=== PATIENT | female | born 1940 | race Caucasian/White ===

== ENCOUNTER 2020-04-18 15:45 | Inpatient (IN) | payer MEDICARE, OTHER, SELFPAY ==
[2020-04-18] VITALS (14 sets, daily range): BP systolic 123–165; BP diastolic 74–117; PULSE 84–147; RESP 16–30; TEMP 37.1; O2SAT 91–97; BMI 27.0
--- NOTE | 2020-04-18 15:50 | XRR_ITS ---
PROCEDURE INFORMATION: Exam: XR Chest, 1 View Exam date and time: 04/18/2020 3:55 PM Age: 79 years old Clinical indication: Tachypnea; Patient HX: PT states no pain today, rapid heart rate TECHNIQUE: Imaging protocol: XR of the chest Views: 1 view. COMPARISON: No relevant prior studies available. FINDINGS: Lungs: Unremarkable. No consolidation. Pleural space: Unremarkable. No pleural effusion. No pneumothorax. Heart/Mediastinum: Unremarkable. No cardiomegaly. Bones/joints: Unremarkable. XR/XR chest 1V portable [id number] IMPRESSION: No acute findings.
--- NOTE | 2020-04-18 15:51 | ECG_ITS ---
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 Measurements Intervals [place] Rate: 119 P: ME: -1 QRS: -35 QRSD: 84 T: 256 QT: 268 QTc: 378 Interpretive Statements ATRIAL FIBRILLATION WITH RAPID VENTRICULAR RESPONSE LEFT AXIS DEVIATION [QRS AXIS < -30] NONSPECIFIC ST & T-WAVE ABNORMALITY No previous ECG available for comparison Electronically Signed On 04-18-2020 18:58:40 NEWBORN PHOTOGRAPHER by Steven Holder M.D. [email or web address]/[id number] f
--- NOTE | 2020-04-18 15:55 | W.ED.ARRPALP ---
HPI - Arrhythmia/Palpitations General: Chief Complaint: Arrhythmia/Palpitations Stated Complaint: AFIB WITH RVR Time Seen by Provider: 04/18/20 15:50 History of Present Illness: HPI narrative: This patient is a 79-year-old female who presents with rapid heart rate. She said her hearts been racing since about 4:00 this morning. She has a history of atrial fibrillation and had a in [place] by Dr. Boss at [facility]. That was done on Monday. She was started on metoprolol and digoxin. She said she has not been on medications for A. fib prior to that. She has had episodes of A. fib for quite some time but only recently apparently were these diagnosed. She gets short of breath and weak need when these episodes occur. She does not really have chest pain but has some tightness and heaviness in her chest. Today's episode was not any different. She was hoping it would go away on its own but it did not. She called EMS. They initially thought she was having SVT but then realized it was A. fib and gave her a dose of Cardizem, 10 mg IV push in route which did slow her down to around 100. On my evaluation however within a few minutes of her arrival her heart rate was back up in the 150s. MD complaint: rapid heart beat, skipped beats , irregular heart beat and atrial fibrillation Onset (ago): hour(s) (12) Duration: constant Severity: moderate Context: awoke with symptoms Arrhythmia history: atrial fibrillation Associated symptoms: Reports short of breath; Deny nausea or vomiting Treatments prior to arrival: beta-neda Review of Systems General: Reports: 10 or more systems reviewed and unremarkable except in HPI and below Const: Denies: fever(s), chills, fatigue or malaise Eyes: Denies: change in vision ENMT: Denies: odynophagia Card: Reports: chest pain and dyspnea on exertion; Denies: swelling of feet/ankles Resp: Denies: dyspnea, productive cough or non-productive cough GI: Denies: abdominal pain, nausea or vomiting : Denies: flank pain or difficulty voiding Musc: Denies: neck pain or back pain Skin/Breast: Denies: rash Neuro: Denies: headache(s), numbness in extremities or weakness in extremities Win/Lymph: Denies: easy bruising or easy bleeding PFSH ED PFSH: Medical History (Updated 04/18/20 @ 19:27 by Demetrio Godfrey MD) Diabetes mellitus History of cardioversion Hypertension Urinary incontinence Surgical History (Updated 04/18/20 @ 20:09 by Demetrio Godfrey MD) No pertinent past surgical history Family History (Updated 04/18/20 @ 20:10 by Demetrio Godfrey MD) Other Family history non-contributory Social History (Updated 04/18/20 @ 20:10 by Demetrio Godfrey MD) Smoking and tobacco status: never smoked Alcohol intake: never Substance/Drug Use: never Lives independently: Yes Housing: House Physical Exam Const: COMMON NORMALS: no acute distress, patient oriented x3, no limitations and alert GENERAL APPEARANCE: cooperative and comfortable HENMT: HEAD & SCALP: normal to inspection FACE & SINUS: normal facial exam Eye: GENERAL EYE: appearance normal, both eyes and all related structures Neck/C-Spine: COMMON NORMALS: supple, no meningeal signs and no JVD Chest: COMMONS NORMALS: normal inspection of the chest Resp: COMMON NORMALS: normal respiratory effort, No use of accessory muscles and clear to auscultation bilaterally AUSCULTATION: clear to auscultation bilaterally Cardio: COMMON NORMALS: no JVD and No murmurs present (Cardio) RATE: tachycardic RHYTHM: abnormal rhythm irregularly irregular GI: COMMON NORMALS: Normal to inspection, nondistended, normoactive bowel sounds present, Soft to palpation and non-tender INSPECTION: Yes normal to inspection AUSCULTATION: Yes normoactive bowel sounds PALPATION: Yes Soft to palpation Back/Pelvis: COMMON NORMALS: thoracic and lumbar spine normal to inspection Extremity: COMMON NORMALS: normal to inspection Neuro: COMMON NORMALS: patient oriented x3, moves all extremities, no focal motor deficits and no sensory deficits noted SENSORIUM/ORIENTATION: Yes alert MENINGEAL SIGNS: Yes no meningeal signs Psych: COMMON NORMALS: mental status grossly normal, cooperative and normal affect Skin: COMMON NORMALS: no rashes or lesions noted and turgor normal GENERAL SKIN EXAM: no rashes or lesions noted and turgor normal Course ED course: Patient will be admitted to the hospital as her heart rate is still not controlled. The Cardizem does definitely slow her down however at 15 mg/h it was noted that she was having pauses and at times her heart rate was dropping into the 40s. She said the same thing happened when they did the cardioversion on Monday. Because of this pauses I had the nurse decrease the Cardizem back down to 10. With that she seems to jump between about 80 and 110 on her heart rate. Her blood pressure continues to be stable. Her respirations are comfortable. She is in good spirits. Discussed with Dr. Godfrey and she will be admitted to the [facility]. Vital Signs: Vital signs: Vital Signs Pulse Rate 84 04/18/20 20:34 Respiratory Rate 30 H 04/18/20 20:34 Blood Pressure 152/74 04/18/20 20:34 Pulse Oximetry 95 04/18/20 20:34 MDM - Arrhythmia/Palpitations Lab Data: Labs: Lab Results 04/18/20 04/18/20 04/18/20 Range/Units 15:59 15:59 15:59 WBC 8.0 (4.0-10.0) 10^3/ uL RBC 4.38 (4.1-5.3) 10^6/u L Hgb 12.4 (11.5-15.3) g/dL Hct 39.6 (37.0-47.0) % MCV 90.4 (81-99) fL MCH 28.3 (28.0-34.0) pg MCHC 31.3 (30.0-36.0) g/dL RDW 15.9 H (12.1-15.1) % Plt Count 212 (130-400) 10^3/c mm MPV 11.8 H (7.4-10.4) fL Neut % (Auto) 69.8 % Lymph % (Auto) 19.4 % Beauregard % (Auto) 9.1 % Eos % (Auto) 0.6 % Baso % (Auto) 0.9 % Neut # (Auto) 5.61 (1.8-7.7) 10^3/u L Lymph # (Auto) 1.6 (0.8-4.8) 10^3/u L Beauregard # (Auto) 0.7 (0.2-0.9) 10^3/u L Eos # (Auto) 0.1 (0.0-0.8) 10^3/u L Baso # (Auto) 0.1 (0.0-0.1) 10^3/u L Nucleated RBC % (a uto) 0 % Nucleated RBCs # 0.0 /100WBC PT 15.40 H (12.1-14.9) SECO NDS INR 1.18 (0.8-1.2) D-Dimer 0.50 (0-0.59) ug/mIFE U Sodium 144 (136-145) mmol/L Potassium 4.5 (3.5-5.1) mmol/L Chloride 109 H (98-107) mmol/L Carbon Dioxide 23 (22-29) mmol/L Anion Gap 16.5 (5-19) BUN 14 (8-23) mg/dL Creatinine 0.8 (0.5-0.9) mg/dL GFR Calculation Not Reportable Glucose 153 H (65-115) mg/dL Estimat Average Gl ucose Hemoglobin A1c (4.0-6.0) % Calculated Osmolal ity 302 H (285-295) mOsm/k g Calcium 9.2 (8.5-10.5) mg/dL Magnesium 1.6 L (1.7-2.3) mg/dL Total Bilirubin 0.5 (0.15-1.2) mg/dL AST 28 (0-32) U/L ALT 27 (0-33) U/L Alkaline Phosphata se 57 (35-105) IU/L Troponin T Baselin e (0-10) ng/L Troponin T 120 Min [place] (0-10) ng/L Delta Troponin T (0-10) ABS# NT-Pro-B Natriuret Pep 5535 H (0-450) pg/mL Total Protein 6.2 L (6.6-8.7) g/dL Albumin 3.8 (3.5-5.2) g/dL Globulin 2.4 (1.3-4.6) g/dL TSH (0.27-4.20) uIU/ mL Digoxin (0.6-1.2) ng/mL 04/18/20 04/18/20 04/18/20 Range/Units 15:59 15:59 15:59 WBC (4.0-10.0) 10^3/ uL RBC (4.1-5.3) 10^6/u L Hgb (11.5-15.3) g/dL Hct (37.0-47.0) % MCV (81-99) fL MCH (28.0-34.0) pg MCHC (30.0-36.0) g/dL RDW (12.1-15.1) % Plt Count (130-400) 10^3/c mm MPV (7.4-10.4) fL Neut % (Auto) % Lymph % (Auto) % Bea[place]gard % (Auto) % Eos % (Auto) % Baso % (Auto) % Neut # (Auto) (1.8-7.7) 10^3/u L Lymph # (Auto) (0.8-4.8) 10^3/u L [place]gard # (Auto) (0.2-0.9) 10^3/u L Eos # (Auto) (0.0-0.8) 10^3/u L Baso # (Auto) (0.0-0.1) 10^3/u L Nucleated RBC % (a uto) % Nucleated RBCs # /100WBC PT (12.1-14.9) SECO NDS INR (0.8-1.2) D-Dimer (0-0.59) ug/mIFE U Sodium (136-145) mmol/L Potassium (3.5-5.1) mmol/L Chloride (98-107) mmol/L Carbon Dioxide (22-29) mmol/L Anion Gap (5-19) BUN (8-23) mg/dL Creatinine (0.5-0.9) mg/dL GFR Calculation Glucose (65-115) mg/dL Estimat Average Gl ucose 143 Hemoglobin A1c 6.6 H (4.0-6.0) % Calculated Osmolal ity (285-295) mOsm/k g Calcium (8.5-10.5) mg/dL Magnesium (1.7-2.3) mg/dL Total Bilirubin (0.15-1.2) mg/dL AST (0-32) U/L ALT (0-33) U/L Alkaline Phosphata se (35-105) IU/L Troponin T Baselin e 48 H (0-10) ng/L Troponin T 120 Min [place] (0-10) ng/L Delta Troponin T (0-10) ABS# NT-Pro-B Natriuret Pep (0-450) pg/mL Total Protein (6.6-8.7) g/dL Albumin (3.5-5.2) g/dL Globulin (1.3-4.6) g/dL TSH (0.27-4.20) uIU/ mL Digoxin 1.2 (0.6-1.2) ng/mL 04/18/20 04/18/20 Range/Units 18:05 18:05 WBC (4.0-10.0) 10^3/ uL RBC (4.1-5.3) 10^6/u L Hgb (11.5-15.3) g/dL Hct (37.0-47.0) % MCV (81-99) fL MCH (28.0-34.0) pg MCHC (30.0-36.0) g/dL RDW (12.1-15.1) % Plt Count (130-400) 10^3/c mm MPV (7.4-10.4) fL Neut % (Auto) % Lymph % (Auto) % Beauregard % (Auto) % Eos % (Auto) % Baso % (Auto) % Neut # (Auto) (1.8-7.7) 10^3/u L Lymph # (Auto) (0.8-4.8) 10^3/u L [place]gard # (Auto) (0.2-0.9) 10^3/u L Eos # (Auto) (0.0-0.8) 10^3/u L Baso # (Auto) (0.0-0.1) 10^3/u L Nucleated RBC % (a uto) % Nucleated RBCs # /100WBC PT (12.1-14.9) SECO NDS INR (0.8-1.2) D-Dimer (0-0.59) ug/mIFE U Sodium (136-145) mmol/L Potassium (3.5-5.1) mmol/L Chloride (98-107) mmol/L Carbon Dioxide (22-29) mmol/L Anion Gap (5-19) BUN (8-23) mg/dL Creatinine (0.5-0.9) mg/dL GFR Calculation Glucose (65-115) mg/dL Estimat Average Gl ucose Hemoglobin A1c (4.0-6.0) % Calculated Osmolal ity (285-295) mOsm/k g Calcium (8.5-10.5) mg/dL Magnesium 1.7 (1.7-2.3) mg/dL Total Bilirubin (0.15-1.2) mg/dL AST (0-32) U/L ALT (0-33) U/L Alkaline Phosphata se (35-105) IU/L Troponin T Baselin e (0-10) ng/L Troponin T 120 Min [place] 44.82 H (0-10) ng/L Delta Troponin T -3.18 L (0-10) ABS# NT-Pro-B Natriuret Pep (0-450) pg/mL Total Protein (6.6-8.7) g/dL Albumin (3.5-5.2) g/dL Globulin (1.3-4.6) g/dL TSH 1.65 (0.27-4.20) uIU/ mL Digoxin (0.6-1.2) ng/mL Discharge Plan Discharge Patient Disposition: Admitted As Inpatient Admit Provider: Demetrio Godfrey Clinical Impression: Atrial fibrillation Qualifiers: Atrial fibrillation type: paroxysmal Qualified Code(s): I48.0 - Paroxysmal atrial fibrillation Condition: Stable Coding Level of Care Code ED Alining Inspector for [facility] Fwd Exam Comprehensive
[2020-04-18 16:06] LABS: Basophils # 0.1 10^3/uL (0.0-0.1); Basophils % 0.9 %; Eosinophils # 0.1 10^3/uL (0.0-0.8); Eosinophils % 0.6 %; Hematocrit 39.6 % (37.0-47.0); Hemoglobin 12.4 g/dL (11.5-15.3); Lymphocytes # 1.6 10^3/uL (0.8-4.8); Lymphocytes % 19.4 %; Mean Corpuscular HGB Conc 31.3 g/dL (30.0-36.0); Mean Corpuscular Hemoglobin 28.3 pg (28.0-34.0); Mean Corpuscular Volume 90.4 fL (81-99); Mean Platelet Volume 11.8 fL (7.4-10.4); Monocytes # 0.7 10^3/uL (0.2-0.9); Monocytes % 9.1 %; Neutrophils # 5.61 10^3/uL (1.8-7.7); Neutrophils % 69.8 %; Nucleated Red Blood Cells % 0 %; Platelet Count 212 10^3/cmm (130-400); Red Blood Count 4.38 10^6/uL (4.1-5.3); Red Cell Distribution Width 15.9 % (12.1-15.1)
[2020-04-18 16:17] LABS: INR 1.18 (0.8-1.2)
[2020-04-18 16:31] LABS: Troponin(5th) Baseline 48 ng/L (0-10)
[2020-04-18 16:39] LABS: Alanine Aminotransferase 27 U/L (0-33); Albumin Level 3.8 g/dL (3.5-5.2); Alkaline Phosphatase 57 IU/L (35-105); Aspartate Amino Transferase 28 U/L (0-32); Blood Urea Nitrogen 14 mg/dL (8-23); Calcium 9.2 mg/dL (8.5-10.5); Carbon Dioxide 23 mmol/L (22-29); Chloride 109 mmol/L (98-107); Globulin 2.4 g/dL (1.3-4.6); Glucose 153 mg/dL (65-115); Magnesium 1.6 mg/dL (1.7-2.3); NT Pro B Type Natriuretic Pept 5535 pg/mL (0-450); Osmolality Calculated 302 mOsm/kg (285-295); Sodium 144 mmol/L (136-145); Total Bilirubin 0.5 mg/dL (0.15-1.2); Total Protein 6.2 g/dL (6.6-8.7)
[2020-04-18 16:41] LABS: Anion Gap 16.5 (5-19); Potassium 4.5 mmol/L (3.5-5.1)
--- NOTE | 2020-04-18 17:51 | ECG_ITS ---
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 Measurements Intervals [place] Rate: 111 P: FL: -1 QRS: -18 QRSD: 89 T: 267 QT: 300 QTc: 408 Interpretive Statements ATRIAL FIBRILLATION WITH RAPID VENTRICULAR RESPONSE ST DEVIATION AND MODERATE T-WAVE ABNORMALITY, CONSIDER LATERAL ISCHEMIA [-0.1+ mV T WAVE IN I/aVL/V5/V6] Compared to ECG 04/18/2020 16:28:02 Possible ischemia now present Left-axis deviation no longer present T-wave abnormality still present Electronically Signed On 04-18-2020 19:00:19 LINING STRAP CLOSER by Steven Holder M.D. [email or web address].[email or web address]/store/[id number]
--- NOTE | 2020-04-18 17:54 | PC.NURSE ---
Pt ambulated to BR with SBA. Pt ambulated without difficulty. Pt ambulated back to room without difficulty and placed back on monitor. Pt wishes to sit with her feet dangling. Daughter at bedside. Pt requesting water, per Dr Valencia, ok to have water. Pt given water. Pt denies other needs at this time.
[2020-04-18] MEDS: magnesium sulfate premix 2 GM/50 ML PIGGYBACK IV (18:33)
[2020-04-18 18:53] LABS: Troponin 5 2HR 44.82 ng/L (0-10)
[2020-04-18 18:54] LABS: Digoxin 1.2 ng/mL (0.6-1.2)
[2020-04-18 18:56] LABS: Troponin 5 2HR Delta -3.18 ABS# (0-10)
--- NOTE | 2020-04-18 18:59 | PC.NURSE ---
patient has bilateral lower extremity swelling upon arrival.
--- NOTE | 2020-04-18 19:21 | P.HP_ITS ---
Providers/Chief Complaint Primary Care Provider: Hunter Pavon Jr, MD Chief Complaint: AFIB WITH RVR History of Present Illness Sariah Yip is a 79 year old female who carries history of paroxysmal atrial fibrillation, chronic anticoagulation with Xarelto, recently had cardioversion on Monday at [facility], came in today for shortness of breath and back pain. Patient is stating that today she woke up around 4 AM with shortness of breath, she started experiencing back pain which she is describing in between shoulder blades, she went to the kitchen to check her blood pressure and pulse, her heart rate was in 140s, patient is stating that for last 3 to 4 days her heart rate was consistently in the 40s, she skipped her digoxin, today she resumed digoxin when she saw 140 heart rate. She also noticed some chest discomfort associated with high heart rate. She is denying nausea, vomiting, radiation of chest discomfort. She did not notice any fever, vomiting, diarrhea. She does not carry a previous history of cardiac disease, VA, CHF. Diagnosis in the ER revealed A. fib RVR in 140s, hypertensive, normal potassium, she was bolused with Cardizem and started on Cardizem drip, she maxed to 15ml/h which was titrated down because of sinus pauses noted on telemetry. Patient's vitals stayed stable, at the time of my evaluation heart rate was fluctuating between 80s to 120s, hypertensive, no active chest pain or back pain. Cardizem drip running at 10 mL/h High BNP with mild signs of fluid overload, D-dimer not significantly high, I have requested TSH, magnesium level Digoxin level 1.2 Review of Systems Const: Reports: malaise; Denies: fever(s), body aches or fatigue Eyes: Denies: change in vision ENMT: Denies: throat pain Card: Reports: chest pain, palpitations, irregular heart rhythm, swelling of feet/ankles, dyspnea on exertion and orthopnea Resp: Denies: dyspnea GI: Denies: abdominal pain, nausea, vomiting, diarrhea or constipation : Reports: urinary urgency Musc: Denies: neck pain Skin/Breast: Denies: rash Neuro: Denies: headache(s) Psych: Denies: anxiety Endo: Denies: polyuria Win/Lymph: Denies: easy bruising All/Imm: Denies: urticaria Medications/Allergies Home Medications Medication Instructions Recorded Confirmed Last Taken Type digoxin 250 mcg PO DAILY 04/18/20 04/18/20 04/18/20 History insulin glargine [Lantus U-100 18 unit SUBCUT BID 04/18/20 04/18/20 04/18/20 History Insulin] lisinopril 5 mg PO DAILY 04/18/20 04/18/20 04/18/20 History metformin 1,000 mg PO BID 04/18/20 04/18/20 04/18/20 History metoprolol succinate 100 mg PO DAILY 04/18/20 04/18/20 04/18/20 History oxybutynin chloride 5 mg PO DAILY PRN 04/18/20 04/18/20 04/18/20 History rivaroxaban [Xarelto] 20 mg PO DAILY 04/18/20 04/18/20 04/17/20 History simvastatin 20 mg PO DAILY 04/18/20 04/18/20 04/17/20 History Allergies Allergy/AdvReac Type Severity Reaction Status Date / Time propoxyphene [From Darvon] Allergy ADR-Itching Verified 04/18/20 16:06 PFSH Acute PFSH: Medical History (Updated 04/18/20 @ 19:27 by Demetrio Godfrey MD) Diabetes mellitus History of cardioversion Hypertension Urinary incontinence Surgical History (Updated 04/18/20 @ 20:09 by Demetrio Godfrey MD) No pertinent past surgical history Family History (Updated 04/18/20 @ 20:10 by Demetrio Godfrey MD) Other Family history non-contributory Social History (Updated 04/18/20 @ 20:10 by Demetrio Godfrey MD) Smoking and tobacco status: never smoked Alcohol intake: never Substance/Drug Use: never Lives independently: Yes Housing: House Vitals/I&O/Wt Last Vital Signs Pulse 107 H 04/18/20 18:36 Resp 22 H 04/18/20 18:36 BP 140/100 04/18/20 18:36 Pulse Ox 94 04/18/20 18:36 04/18/20 04/18/20 04/18/20 06:59 14:59 22:59 Intake Total 20.542 / 20.542 Balance 20.542 / 20.542 Weight last 48 hrs Weight 77.111 kg Physical Exam Narrative: EXAM NARRATIVE: elderly female sitting comfortably in her bed Normocephalic/atraumatic skull Appears stated age Clinically mild signs of fluid overload Variable S1-S2, EOMI, PERRLA Neurologically no focal deficit Appropriate mood and affect Bilateral breath sounds with mild rhonchi at the bases Abdomen soft nontender Lower extremity 1+ pitting edema Skin does not show any sign of ischemia or gangrene No active chest pain No active back pain Daughter at the bedside Data : 04/18/20 15:59 04/18/20 15:59 A&P Assessment and plan (1) Atrial fibrillation: Status: Acute Qualifiers: Atrial fibrillation type: paroxysmal Qualified Code(s): I48.0 - Paroxysmal atrial fibrillation (2) New onset of congestive heart failure: Status: Acute Additional A&P Information Paroxysmal atrial fibrillation with acute RVR Recently had cardioversion on Monday at [facility] She is anticoagulated with Xarelto She is taking metoprolol succinate, digoxin Digoxin level 1.2 Potassium level normal We will check TSH, magnesium level Currently on Cardizem drip running at 10 mL/h which has been titrated down from 15 mL/h due to sinus pauses noticed on telemetry, I would switch her metoprolol succinate to Metroprolol tartrate We discussed options of adding antiarrhythmic agent and optimizing her AV lucia blocking agents versus ablation Patient is adamant that she would like to discuss further options with her copyright expert at [place] but willing for second opinion in the morning, at this point she is not sure whether she would opt for antiarrhythmic agent New onset CHF This seems secondary to tachyarrhythmia Lasix na?ve I would only use 20 mg of Lasix for now Mild signs of fluid overload Echo in the morning Follow-up with TSH No signs of coronary ischemia or new murmur Type 2 diabetes: Moderate sliding scale, consistent carb diet, resume long- acting insulin Follow-up with hemoglobin A1c Full code DVT prophylaxis not indicated currently on Xarelto Consistent carb diet Attestations Medical Necessity Statement*: Anticipating stay in the hospital course more than 2 midnights currently need IV Cardizem for A. fib acute RVR Need optimization of AV lucia blocking agents Time Spent in Patient Care: (>than 50% of time spent in counselling and/or direct pt care on unit) . 50mins Coding Level of Care Code Acute Ehs Teacher for Chg Fwd Diagnoses Atrial fibrillation I48.0 Atrial fibrillation type: paroxysmal New onset of congestive heart failure I50.9
[2020-04-18 19:31] LABS: Glucose Point of Care 104 mg/dL (70-110)
[2020-04-18 19:56] LABS: Estmated Average Glucose 143; Hemoglobin A1C 6.6 % (4.0-6.0)
[2020-04-18 20:05] LABS: Magnesium 1.7 mg/dL (1.7-2.3); Thyroid Stimulating Hormone 1.65 uIU/mL (0.27-4.20)
--- NOTE | 2020-04-18 21:00 | PC.NURSE ---
pt placed on Zoll pads while on cardizem drip
[2020-04-18 21:51] LABS: Glucose Point of Care 183 mg/dL (70-110)
--- NOTE | 2020-04-18 22:43 | PC.NURSE ---
PT ARRIVED TO FLOOR VIA BED. PT WAS ABLE TO TRANSFER SBA TO BED. PT IS ON A CARDIZEM GTT AT 10MG/HR. HR WENT UP INTO THE 140'S WITH EXERTION AND CAME BACK DOWN TO 90'S AFTER SETTLING DOWN. PT IS ALERT AND ORIENTATED X3. PT ORIENTATED TO ROOM. CALL LIGHT WITHIN REACH. WILL CONTINUE TO MONITOR.
[2020-04-19] VITALS (23 sets, daily range): BP systolic 125–163; BP diastolic 73–109; PULSE 62–120; RESP 17–26; TEMP 36.4–37.1; O2SAT 92–97
--- NOTE | 2020-04-19 05:21 | ECG_ITS ---
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 Measurements Intervals [place] Rate: 99 P: ME: -1 QRS: -29 QRSD: 112 T: -60 QT: 353 QTc: 454 Interpretive Statements ATRIAL FIBRILLATION BORDERLINE LEFT AXIS DEVIATION [QRS AXIS < -20] MODERATE INTRAVENTRICULAR CONDUCTION DELAY [110+ ms QRS DURATION] MODERATE ST DEPRESSION [0.05+ mV ST DEPRESSION] INTERPRETATION BASED ON A DEFAULT AGE OF 40 YEARS Compared to ECG 04/18/2020 18:17:04 Intraventricular conduction delay now present ST (T wave) deviation now present T-wave abnormality no longer present Possible ischemia no longer present Electronically Signed On 04-19-2020 21:12:25 LABORER COOK [employer]SE by Steven Holder M.D. [id number] f
--- NOTE | 2020-04-19 05:48 | PC.NURSE ---
PT HAD CHEST PAIN/PRESSURE 3/10 CENTER MASS NON RADIATING. DR NOTIFIED. EKG ORDERED. EKG DONE AND CHEST PAIN RESOLVED WHILE DR WAS IN ROOM.
[2020-04-19 06:02] LABS: Anion Gap 13.9 (5-19); Blood Urea Nitrogen 11 mg/dL (8-23); Carbon Dioxide 26 mmol/L (22-29); Chloride 108 mmol/L (98-107); Glucose 110 mg/dL (65-115); Osmolality Calculated 298 mOsm/kg (285-295); Potassium 3.9 mmol/L (3.5-5.1); Sodium 144 mmol/L (136-145)
[2020-04-19 07:07] LABS: Glucose Point of Care 120 mg/dL (70-110)
[2020-04-19] MEDS: rivaroxaban 10 mg Tablet 20 MG PO (09:54)
[2020-04-19] MEDS: metoprolol tartrate 50 mg Tablet PO ×2 (09:55→17:56)
[2020-04-19] MEDS: atorvastatin 40 mg Tablet 20 MG PO (09:55)
[2020-04-19] MEDS: digoxin 250 mcg Tablet PO (09:55)
[2020-04-19] MEDS: FUROsemide 20 mg Tablet PO (09:55)
[2020-04-19] MEDS: lisinopril 5 mg Tablet PO (09:55)
[2020-04-19] MEDS: insulin glargine 100 units/1 mL 18 UNIT SUBCUT (09:56)
--- NOTE | 2020-04-19 10:22 | PC.NURSE ---
dr oneil texted at 0900 to verify medications. metoprolol succinate er 100mg and metoprolol tartrate 50mg. dr duvall called at 0950 for order clarifications, ordered to give metoprolol tartrate 50 mg.
--- NOTE | 2020-04-19 11:02 | PM.PN ---
Subjective Subjective: Interval history: Chart reviewed, patient remains on Cardizem drip due to continued A. fib with RVR, heart rate in the 110-120 range. Intermittently hypertensive. Cardizem currently at 10 mg/hr. She is resting quietly in bed, no complaints and she generally feels well as long as she is resting. She does feel SOB, and fatigued with any exertion and HR spikes. Medications: Reviewed: Yes Medication Review Details: Active Medications Generic Name Dose Route Start Last Admin Trade Name Freq PRN Reason Stop Dose Admin Atorvastatin Calci um 20 mg 04/19/20 09:00 04/19/20 09:55 Atorvastatin 40 Mg Tablet PO 20 mg DAILY MARVA Administration Dextrose 25 ml 04/18/20 21:22 Dextrose 50% Syr jaz 50 Ml IVP ONCE PRN hypoglycemia prot ocol Protocol Dextrose 50 ml 04/18/20 21:22 Dextrose 50% Syr jaz 50 Ml IVP PRN PRN hypoglycemia prot ocol Protocol Digoxin 250 mcg 04/19/20 09:00 04/19/20 09:55 Digoxin 250 Mcg Tablet PO 250 mcg DAILY MARVA Administration Furosemide 20 mg 04/19/20 09:00 04/19/20 09:55 Furosemide 20 Mg Tablet PO 20 mg DAILY MARVA Administration Glucagon 1 mg 04/18/20 21:22 Glucagon 1 Mg/Ml Inj 1 Ml IM ONCE PRN Adult Acute Hypog lycemia Prot. Protocol Diltiazem HCl 125 mg/ Sodium 125 mls @ 0 mls/h r 04/18/20 16:00 04/19/20 07:24 Chloride IV 10 mg/hr .Q0M MARVA 10 mls/hr Administration Protocol Per Protocol Dextrose 500 mls @ 100 mls /hr 04/18/20 21:22 D5w IV ONCE PRN Adult Acute Hypog lycemia Prot Protocol Insulin Aspart 0 unit 04/18/20 21:22 04/19/20 08:23 Insulin Aspart 1 00 Unit/1 Ml SUBCUT Not Given WM&BEDTIME MARVA Protocol Insulin Glargine 18 unit 04/19/20 09:00 04/19/20 09:56 Insulin Glargine 100 Units/1 Ml SUBCUT 18 unit DAILY MARVA Administration Lisinopril 5 mg 04/19/20 09:00 04/19/20 09:55 Lisinopril 5 Mg Tablet PO 5 mg DAILY MARVA Administration Metoprolol Tartrat e 50 mg 04/19/20 09:00 04/19/20 09:55 Metoprolol Tartr ate 50 Mg Tablet PO 50 mg BID MARVA Administration Oxybutynin Chlorid e 5 mg 04/18/20 21:22 Oxybutynin 5 Mg Tablet PO DAILY PRN MUSCLE SPASMS Rivaroxaban 20 mg 04/19/20 09:00 04/19/20 09:54 Rivaroxaban 10 M g Tablet PO 20 mg DAILY MARVA Administration propoxyphene [From Darvon] Allergy (Verified 04/18/20 16:06) ADR-Itching Vitals/I&O/Wt Last Vital Signs Temp 97.5 F L 04/19/20 08:00 Pulse 120 H 04/19/20 09:55 Resp 18 04/19/20 08:00 BP 149/109 04/19/20 08:00 Pulse Ox 97 04/19/20 08:00 04/18/20 04/19/20 04/19/20 22:59 06:59 14:59 Intake Total 20.542 / 20.542 104.458 / 125.000 118 / 118 Balance 20.542 / 20.542 104.458 / 125.000 118 / 118 Weight last 48 hrs Weight 77.111 kg Physical Exam Const: COMMON NORMALS: no acute distress, patient oriented x3 and alert GENERAL APPEARANCE: cooperative and comfortable ORIENTATION/CONSCIOUSNESS: Yes awake OTHER: -looks younger than stated age, very pleasant HENMT: COMMON NORMALS: normocephalic, atraumatic, hearing grossly normal bilaterally and moist oral mucous membranes HEAD & SCALP: normocephalic and atraumatic Eye: COMMON NORMALS: Equal, round and reactive pupils present, EOMs intact bilaterally and conjunctivae normal CONJUNCTIVA: Yes conjunctivae normal PUPIL: Yes Equal, round and reactive pupils present Neck/C-Spine: COMMON NORMALS: full ROM GENERAL: Yes normal visual inspection and Yes trachea midline Resp: COMMON NORMALS: normal respiratory effort, No retractions, No use of accessory muscles and clear to auscultation bilaterally EFFORT & INSPECTION: Yes able to speak in complete sentences, Yes symmetric chest movement and Yes tachypneic AUSCULTATION: clear to auscultation bilaterally OTHER: -on RA Cardio: COMMON NORMALS: S1 normal heart sound present, S2 normal heart sound present and No murmurs present (Cardio) RATE: tachycardic RHYTHM: abnormal rhythm irregularly irregular HEART SOUNDS: S1 normal heart sound present and S2 normal heart sound present GI: COMMON NORMALS: Normal to inspection, nondistended, normoactive bowel sounds present, Soft to palpation and non-tender PALPATION: Yes Soft to palpation Extremity: COMMON NORMALS: normal to inspection, full ROM and no clubbing, cyanosis or edema; negative for no pedal edema Neuro: COMMON NORMALS: patient oriented x3, moves all extremities, no focal motor deficits and no sensory deficits noted SENSORIUM/ORIENTATION: Yes alert Psych: COMMON NORMALS: mental status grossly normal, Normal thought process present, cooperative, normal affect and speech normal SPEECH: Yes normal speech THOUGHT PROCESS: Normal thought process present Skin: COMMON NORMALS: no rashes or lesions noted, no jaundice, no petechiae and no mottling GENERAL SKIN EXAM: no rashes or lesions noted Data : 04/18/20 15:59 04/19/20 04:57 A&P Assessment and plan (1) Atrial fibrillation: -Has a known history of paroxysmal atrial fibrillation with recent cardioversion done on Monday (04/13) at [facility] by Dr. Post (her hearings reporter) -Symptomatic as evidenced by shortness of breath, chest discomfort -Remains on Cardizem drip, wean off as tolerated -Continue digoxin, beta-neda, anticoagulation with Xarelto -Echo ordered -Telemetry monitoring -Noted potassium of 3.9, received Mg in the ER, will recheck level in a.m., TSH within normal limits -Intermittent hypertension, tachycardia; continue to monitor vital signs -may need formal cardiology evaluation if difficulty with consistent HR control Status: Acute Qualifiers: Atrial fibrillation type: paroxysmal Qualified Code(s): I48.0 - Paroxysmal atrial fibrillation (2) New onset of congestive heart failure: -Echo pending, none on record -on oral lasix -[id number] Status: Acute (3) Diabetes mellitus: -A1c at goal-6.6 -Acucheks, ISS, Lantus, hypoglycemia precautions -cardiac consistent carb diet as tolerated -hold metformin Status: Chronic Qualifiers: Chronic kidney disease stage: stage 2 (mild) Diabetes mellitus complication detail: with chronic kidney disease Diabetes mellitus complication status: with kidney complications Diabetes mellitus halfway insulin use: with long term care social worker use Diabetes mellitus type: type 2 Qualified Code(s): E11.22 - Type 2 diabetes mellitus with diabetic chronic kidney disease; N18.2 - Chronic kidney disease, stage 2 (mild); Z79.4 - nursing home (current) use of insulin (4) Hypertension: -noted hypertension, increase dose of ACEi -continue BB Status: Chronic Qualifiers: Hypertension type: essential hypertension Qualified Code(s): I10 - Essential (primary) hypertension Additional A&P Information -hx of urinary incontinence: on oxybutynin -CKD stage 2; baseline Cr wnl -DVT ppx not needed as on Xarelto -Dispo: home -Code status: FULL code Attestations Medical Necessity Statement*: Patient requires hospitalization for continued management of atrial fibrillation with RVR, remains on Cardizem drip, needs continued hemodynamic and telemetry monitoring. Time Spent in Patient Care: Greater than 35 minutes (>than 50% of time spent in counselling and/or direct pt care on unit). Coding Level of Care Code Acute Trauma Coordinator for g Fwd Exam Comprehensive Diagnoses Atrial fibrillation I48.0 Atrial fibrillation type: paroxysmal New onset of congestive heart failure I50.9 Diabetes mellitus E11.22; N18.2; Z79.4 Chronic kidney disease stage: stage 2 (mild) Diabetes mellitus complication detail: with chronic kidney disease Diabetes mellitus complication status: with kidney complications Diabetes mellitus long term care social worker insulin use: with long term care social worker use Diabetes mellitus type: type 2 Hypertension I10 Hypertension type: essential hypertension
[2020-04-19 11:47] LABS: Glucose Point of Care 182 mg/dL (70-110)
--- NOTE | 2020-04-19 12:12 | PC.CHAP ---
Pastoral Care Encounter/Spiritual Assessment Type of Contact [] Declined vigoureux printer visit [] Patient/Family/Request visit [] Outpatient visit [] Follow-up visit [] Physician referral [] Code/Alert [] Routine visit [] Staff referral [] Actively dying [] Patient sleeping [] Family support [] [] Out of room [] Palliative care [] [X] Receiving care in room [] Pre-surgical visit [] Trauma [] Long length of stay [] ICU visit [] Other: Relational/Emotional Strength [] Patient feels connected with others/family/visitors/staff [] Distress [] Loneliness/isolation [] Abandonment Spirituality of Patient [] Person of Nichelle [] Attends Caodaism of their Nichelle [] Believes in Prayer [] Reads Bible or Latter-Day materials [] There are Spiritual issues to be addressed Bmet Interventions [] Prayer [] Active listening [] Non-anxious presence [] Spiritual/emotional support [] Crisis/trauma care [] Spiritual counseling [] Bereavement support [] Provided bereavement packet [] Provided Bible/devotional materials [] Provided toy/stuffed animal, coloring book to patient or family member [] Provided Communion [] Anointing/[place] [] Salvation [] Completed spiritual assessment [] Other: Impact on Illness or Injury [] Angry [] Fearful [] Anxious [] Often cries [] Exhaustion [] Unable to work [] Unable to attend protestant [] Unable to walk/stand [] Unable to read [] Unable to drive [] Unable to eat/drink [] Unable to sleep [] Unable to be with family [] Patient intubated [] Other: Summary Time spent with patient
[2020-04-19 17:07] LABS: Glucose Point of Care 176 mg/dL (70-110)
[2020-04-19] MEDS: lisinopril 10 mg Tablet PO (17:56)
[2020-04-19 20:15] LABS: Glucose Point of Care 251 mg/dL (70-110)
--- NOTE | 2020-04-19 21:03 | PC.NURSE ---
2030 HR 60s-80 at rest remains A-fibb Cardizem drip decreased to 10mg/hr
--- NOTE | 2020-04-19 21:22 | USCV_ITS ---
Sariah Yip Age: 79 Gender: F : 1940 Exam Date: 04/19/2020 13:10 Ordering Phys: Demetrio Godfrey MD Technologist: Claudia Chaudhry Exam Location: [facility] [place] Indication: New CHF BP: 149 / 109 HR: 106 Rhythm: Sinus Technical Quality: Technically difficult study MEASUREMENTS (Male / Female) Normal Values 2D ECHO LV Diastolic Diameter PLAX 3.3 cm 4.2 - 5.9 / 3.9 - 5.3 cm LV Systolic Diameter PLAX 3.1 cm LV Chamber Size 4.1 cm IVS Diastolic Thickness 1.3 cm 0.6 - 1.0 / 0.6 - 0.9 cm IVS Systolic Thickness 1.7 cm LVPW Diastolic Thickness 1.2 cm 0.6 - 1.0 / 0.6 - 0.9 cm LVPW Systolic Thickness 1.4 cm RV Chamber Size 2.5 cm LVOT Diameter 2.0 cm LV Ejection Fraction 2D Teich 18.6 % LV Ejection Fraction MOD 2C 52.2 % LV Ejection Fraction 2C AL 52.9 % LA Diameter 3.1 cm LA Width 3.6 cm LA Height 4.6 cm RA Width 2.9 cm RA Height 5.3 cm Aorta at Sinotubular Diameter 2.8 cm M-MODE LV Diastolic Diameter MM 3.8 cm 4.2 - 5.9 / 3.9 - 5.3 cm LV Systolic Diameter MM 2.9 cm LV Ejection Fraction MM Teich 47.2 % IVS Diastolic Thickness MM 1.5 cm 0.6 - 1.0 / 0.6 - 0.9 cm IVS Systolic Thickness MM 1.6 cm LVPW Diastolic Thickness MM 1.4 cm 0.6 - 1.0 / 0.6 - 0.9 cm LVPW Systolic Thickness MM 1.5 cm RV Diastolic Diameter MM 1.7 cm Aortic Annulus Diameter 3.4 cm LA Ao Ratio MM 1.1 MV E Point Septal Separation 0.7 cm DOPPLER AV Peak Velocity 140.0 cm/s LVOT Peak Velocity 97.0 cm/s AV Area Cont Eq vti 2.3 cm squared AV Area Cont Eq pk 2.3 cm squared MV Area PHT 5.4 cm squared MV E' Velocity 113.7 cm/s TR Peak Velocity 397.0 cm/s TR Peak Gradient 63.0 mmHg TR Mean Velocity 231.2 cm/s TR Mean Gradient 22.2 mmHg TR Velocity Time Integral 70.3 cm TV Peak E Velocity 46.0 cm/s Right Atrial Pressure 8.0 mmHg Pulmonary Artery Systolic Pressu 71.0 mmHg PV Peak Velocity 47.0 cm/s RV Acceleration Time 0.1 s RV Ejection Time 0.3 s RV AcT/ET 0.3 FINDINGS Left Ventricle Normal left ventricular size and systolic function, EF 55 %. Segmental wall motion analysis difficult because atrial fibrillation. No gross abnormalities were noted. Right Ventricle Normal LV size and ejection fraction Right Atrium Moderately increased right atrial size. Left Atrium Mildly increased left atrial size. Mitral Valve Thickened mitral valve. Mild mitral valve regurgitation. Aortic Valve Thickened aortic valve. Tricuspid Valve Ihfk-eh-vwzknsah tricuspid valve regurgitation. Moderate pulmonary hypertension with estimated pulmonary artery peak systolic pressure of 71 mmHg. Pulmonic Valve Trace pulmonary valve regurgitation. Pericardium Normal pericardium without effusion. Aorta Normal ascending aorta dimension. CONCLUSIONS Normal left ventricular size and systolic function, EF 55 %. Segmental wall motion analysis difficult because atrial fibrillation. [id number] tricuspid valve regurgitation. Moderate pulmonary hypertension with estimated pulmonary artery peak systolic pressure of 71 mmHg. No gross abnormalities were noted. Trace pulmonary valve regurgitation. Thickened aortic valve. Thickened mitral valve. Mild mitral valve regurgitation. Biatrial enlargement, right worse than the left There is no pericardial effusion. There are no intracardiac masses. No previous study is available for comparison. Dr Steven Holder MD FAC (Electronically Signed) Final Date: 19 April 2020 20:51 S
[2020-04-20] VITALS (8 sets, daily range): BP systolic 127–168; BP diastolic 74–114; PULSE 84–111; RESP 18–26; TEMP 36.4–37.1; O2SAT 93–96
[2020-04-20 07:05] LABS: Glucose Point of Care 158 mg/dL (70-110)
[2020-04-20] MEDS: insulin glargine 100 units/1 mL 18 UNIT SUBCUT (09:48)
[2020-04-20] MEDS: metoprolol tartrate 50 mg Tablet PO ×2 (09:48→17:20)
[2020-04-20] MEDS: lisinopril 10 mg Tablet PO ×2 (09:48→17:20)
[2020-04-20] MEDS: atorvastatin 40 mg Tablet 20 MG PO (09:48)
[2020-04-20] MEDS: FUROsemide 20 mg Tablet PO (09:48)
[2020-04-20] MEDS: rivaroxaban 10 mg Tablet 20 MG PO (09:48)
[2020-04-20] MEDS: digoxin 250 mcg Tablet PO (09:48)
[2020-04-20 09:58] LABS: Anion Gap 14.7 (5-19); Blood Urea Nitrogen 12 mg/dL (8-23); Calcium 8.7 mg/dL (8.5-10.5); Carbon Dioxide 24 mmol/L (22-29); Chloride 104 mmol/L (98-107); Glucose 228 mg/dL (65-115); Magnesium 1.7 mg/dL (1.7-2.3); Osmolality Calculated 295 mOsm/kg (285-295); Potassium 3.7 mmol/L (3.5-5.1); Sodium 139 mmol/L (136-145)
[2020-04-20 11:23] LABS: Glucose Point of Care 237 mg/dL (70-110)
[2020-04-20 16:04] LABS: Glucose Point of Care 228 mg/dL (70-110)
--- NOTE | 2020-04-20 17:02 | PM.CONSULT ---
Providers/Reason For Consult Consulting Physican/Specialty*: Dr. Felix, cardiology Reason for Consult*: Atrial fibrillation with rapid ventricular response Attending Physician: Omar Desir Primary Care Provider: Hunter Pavon Jr, MD History of Present Illness History of Present Illness Sariah Yip is a 79 year old female with past medical history of hypertension, diabetes mellitus, dyslipidemia, paroxysmal atrial fibrillation on Xarelto, metoprolol and digoxin. She recently underwent outpatient cardioversion x1 by Dr. Post at [facility] in [place]. She remained in sinus bradycardia with heart rate in 40s and hence held her digoxin from Monday to Monday. Monday night she was feeling okay when she went to bed but on Monday morning when she woke up she did not feel well. She checked her pulse and heart rate was in 140s and hence she came to the hospital for further management. She really wants to get her care with Dr. Post at [facility] but eventually she has agreed to get started on medications here. Her EKG on admission showed A. fib with RVR and she was started on Cardizem drip. Hemoglobin A1c of 6.6, baseline troponin T of 48, troponin T at 2 hours 45. NT proBNP 5535 and TSH of 1.65. Dig level of 1.2. She has remained on Cardizem drip with heart rate running 90s to 130s with spikes with activities. She continues to have shortness of breath intermittently. At the time of evaluation she feels short of breath but denies having any chest pain or shortness of breath. Her daughter was at bedside at the time of evaluation. Review of Systems General: Reports: 10 or more systems reviewed and unremarkable except in HPI and below Const: Denies: fever(s) or chills Eyes: Denies: blurry vision ENMT: Denies: bleeding gums Card: Reports: palpitations, irregular heart rhythm and dyspnea on exertion; Denies: edema Resp: Reports: dyspnea; Denies: productive cough or non-productive cough GI: Reports: abdominal pain; Denies: nausea, vomiting or hematochezia : Denies: hematuria Musc: Denies: extremity swelling Skin/Breast: Reports: rash (Upper chest due to patch) Neuro: Denies: headache(s) Psych: Reports: anxiety Win/Lymph: Denies: petechiae or purpura All/Imm: Denies: urticaria or throat swelling Meds/Allergies Home Medications and Allergies Home Medications Medication Instructions Recorded Confirmed Last Taken Type digoxin 250 mcg PO DAILY 04/18/20 04/18/20 04/18/20 History insulin glargine [Lantus U-100 18 unit SUBCUT BID 04/18/20 04/18/20 04/18/20 History Insulin] lisinopril 5 mg PO DAILY 04/18/20 04/18/20 04/18/20 History metformin 1,000 mg PO BID 04/18/20 04/18/20 04/18/20 History metoprolol succinate 100 mg PO DAILY 04/18/20 04/18/20 04/18/20 History oxybutynin chloride 5 mg PO DAILY PRN 04/18/20 04/18/20 04/18/20 History rivaroxaban [Xarelto] 20 mg PO DAILY 04/18/20 04/18/20 04/17/20 History simvastatin 20 mg PO DAILY 04/18/20 04/18/20 04/17/20 History Allergies Allergy/AdvReac Type Severity Reaction Status Date / Time propoxyphene [From [id number]] Allergy ADR-Itching Verified 04/18/20 16:06 Current Medications Current Medications Generic Name Dose Route Start Last Admin Trade Name Freq PRN Reason Stop Dose Admin Atorvastatin Calcium 20 mg 04/19/20 09:00 04/20/20 09:48 Atorvastatin 40 Mg Tablet PO 20 mg DAILY MARVA Administration Digoxin 250 mcg 04/19/20 09:00 04/20/20 09:48 Digoxin 250 Mcg Tablet PO 250 mcg DAILY MARVA Administration Furosemide 20 mg 04/19/20 09:00 04/20/20 09:48 Furosemide 20 Mg Tablet PO 20 mg DAILY MARVA Administration Diltiazem HCl 125 mg/ Sodium 125 mls @ 0 mls/hr 04/18/20 16:00 04/20/20 14:29 Chloride IV Infused .Q0M MARVA Titration Protocol Per Protocol Insulin Aspart 0 unit 04/18/20 21:22 04/20/20 12:45 Insulin Aspart 100 Unit/1 Ml SUBCUT 8 unit WM&BEDTIME MARVA Administration Protocol Insulin Glargine 18 unit 04/19/20 09:00 04/20/20 09:48 Insulin Glargine 100 Units/1 Ml SUBCUT 18 unit DAILY MARVA Administration Lisinopril 10 mg 04/19/20 18:00 04/20/20 09:48 Lisinopril 10 Mg Tablet PO 10 mg BID MARVA Administration Metoprolol Tartrate 50 mg 04/19/20 09:00 04/20/20 09:48 Metoprolol Tartrate 50 Mg Tablet PO 50 mg BID MARVA Administration Rivaroxaban 20 mg 04/19/20 09:00 04/20/20 09:48 Rivaroxaban 10 Mg Tablet PO 20 mg DAILY MARVA Administration PFSH Acute PFSH: Medical History Diabetes mellitus History of cardioversion Hypertension Urinary incontinence Surgical History No pertinent past surgical history Family History Other Family history non-contributory Social History Smoking and tobacco status: never smoked Alcohol intake: never Substance/Drug Use: never Lives independently: Yes Housing: House Vitals/I&O/Wt Last Vital Signs Temp 98.2 F 04/20/20 15:08 Pulse 87 04/20/20 15:08 Resp 25 H 04/20/20 15:08 BP 136/98 04/20/20 15:08 Pulse Ox 94 04/20/20 15:08 04/20/20 04/20/20 04/20/20 06:59 14:59 22:59 Intake Total 120 / 723 605 / 605 Balance 120 / 723 605 / 605 Physical Exam Narrative: EXAM NARRATIVE: GENERAL: Averagely built and averagely nourished in no acute distress HEENT: Pupils equal round reactive to light. No pallor or icterus. NECK: central trachea, no JVD,. No carotid bruit. CARDIOVASCULAR SYSTEM: S1-S2 irregular. Tachycardia present. No murmur rubs or gallops. RESPIRATORY SYSTEM: Chest clear to auscultation. No wheezes rhonchi or rubs heard. No use of accessory muscles. ABDOMEN: Soft, nontender and nondistended. Normal bowel sounds present. EXTREMITIES: No cyanosis or clubbing. No edema. No signs of chronic venous insufficiency. COMPUTER SYSTEMS SUPPORT SPECIALIST: Patient is alert oriented ?3. No focal neurological deficits. SKIN: Normal turgor and temperature. No breakdown, or nail changes noted. PSYCH: Normal insight and judgment. Data Other Data: Attestation for Other Data: I personally reviewed and interpreted the following: Other data: EKG showed A. fib with RVR. Left axis deviation and nonspecific ST-T wave abnormality. Repeat EKG with atrial fibrillation. Borderline next left axis deviation. Moderate intraventricular conduction delay. Nonspecific ST depression. Chest x-ray with no acute abnormality. TTE (04/19/20) CONCLUSIONS Normal left ventricular size and systolic function, EF 55 %. Segmental wall motion analysis difficult because atrial fibrillation. Fkzc-al-fvubbwvy tricuspid valve regurgitation. Moderate pulmonary hypertension with estimated pulmonary artery peak systolic pressure of 71 mmHg. No gross abnormalities were noted. Trace pulmonary valve regurgitation. Thickened aortic valve. Thickened mitral valve. Mild mitral valve regurgitation. Biatrial enlargement, right worse than the left There is no pericardial effusion. There are no intracardiac masses. No previous study is available for comparison. A&P Assessment and plan (1) Atrial fibrillation: Paroxysmal atrial fibrillation with rapid medical response [id number]= 5/9 , one for hypertension, two for age, one for female sex and one for congestive heart failure. -Follow-up on records from Dr. Post's office. -After much discussion with the patient and her daughter who is currently visiting from [place], decision was made to start her on amiodarone with plan for cardioversion on Monday if she does not convert on her own. -Continue Xarelto, metoprolol and Cardizem drip as needed. -May stop Cardizem drip if heart rate drops to less than 90s. Concern for early tachybradycardia syndrome: She may eventually need either permanent pacemaker placement or AV lucia ablation with permanent pacemaker placement. Status: Acute Qualifiers: Atrial fibrillation type: paroxysmal Qualified Code(s): I48.0 - Paroxysmal atrial fibrillation (2) New onset of congestive heart failure: Likely in setting of A. fib with RVR. -Continue low-dose Lasix Status: Acute (3) Hypertension: Dose of lisinopril was increased. -Continue closely monitor blood pressure and heart rate and further changes based on that. Status: Chronic Qualifiers: Hypertension type: essential hypertension Qualified Code(s): I10 - Essential (primary) hypertension (4) Diabetes mellitus: Status: Chronic Qualifiers: Diabetes mellitus type: type 2 Diabetes mellitus terminal manager insulin use: with usp use Diabetes mellitus complication status: with kidney complications Diabetes mellitus complication detail: with chronic kidney disease Chronic kidney disease stage: stage 2 (mild) Qualified Code(s): E11.22 - Type 2 diabetes mellitus with diabetic chronic kidney disease; N18.2 - Chronic kidney disease, stage 2 (mild); Z79.4 - termite control technician (current) use of insulin Additional A&P Information Elevated troponin in setting of atrial fibrillation with rapid response diffuse nonspecific abdominal pain : I will get a urinalysis History of urinary incontinence Thank you for let me to participate in patient's care. Please feel free to call with questions or concerns. Consult Attestations Medical Necessity Statement: Needs hospital stay for atrial fibrillation with rapid ventricular response Coding Level of Care Code New Pt Acute Marine Equipment Design Engineer for g Fwd Patient Type New History Comprehensive Exam Comprehensive Medical Decision Making High Complexity Diagnoses Atrial fibrillation I48.0 Atrial fibrillation type: paroxysmal New onset of congestive heart failure I50.9 Hypertension I10 Hypertension type: essential hypertension Diabetes mellitus E11.22; N18.2; Z79.4 Diabetes mellitus type: type 2 Diabetes mellitus usp insulin use: with terminal manager use Diabetes mellitus complication status: with kidney complications Diabetes mellitus complication detail: with chronic kidney disease Chronic kidney disease stage: stage 2 (mild) Time Spent (min) 45
[2020-04-20] MEDS: amiodarone 200 mg Tablet 400 MG PO ×2 (17:20→20:43)
--- NOTE | 2020-04-20 18:17 | PC.NURSE ---
patient had an uneventful shift. cardizem drip at 10 and down to 5 at the end of the shift. dr mcclure verbal order to keep cardizem going per protocol.
--- NOTE | 2020-04-20 19:14 | PC.NURSE ---
Rounding: patient resting in bed. patient alert and oriented. denies any needs at this time.
--- NOTE | 2020-04-20 19:30 | P.PN_ITS ---
Subjective Subjective: Interval history: She is doing all right. Daughter is visiting her at bedside. She just had a long discussion with cardiology with regards to options of treatment. Denies any additional questions apart from what to do if when she goes home gets worse again. Discussed with her that given difficulty controlling her atrial fibrillation, and symptoms associated, in case she was again having A. fib with RVR at home, advised to seek medical attention. Denies chest pain. Has been feeling fatigued, especially with exertion. Vitals/I&O/Wt Last Vital Signs Temp 98.2 F 04/20/20 15:08 Pulse 87 04/20/20 15:08 Resp 25 H 04/20/20 15:08 BP 136/98 04/20/20 15:08 Pulse Ox 94 04/20/20 15:08 04/20/20 04/20/20 04/20/20 06:59 14:59 22:59 Intake Total 120 / 723 605 / 605 Balance 120 / 723 605 / 605 Physical Exam Const: COMMON NORMALS: no acute distress and patient oriented x3 OTHER: Sitting up in bed, having dinner. Denies any chest pain. No discomfort. HENMT: COMMON NORMALS: oropharynx normal Neck/C-Spine: COMMON NORMALS: no JVD Resp: COMMON NORMALS: normal respiratory effort and clear to auscultation bilaterally AUSCULTATION: clear to auscultation bilaterally Cardio: COMMON NORMALS: no JVD, S1 normal heart sound present, S2 normal heart sound present and No murmurs present (Cardio) RATE: tachycardic RHYTHM: abnormal rhythm HEART SOUNDS: S1 normal heart sound present and S2 normal heart sound present GI: COMMON NORMALS: Normal to inspection, nondistended, normoactive bowel sounds present, Soft to palpation and non-tender PALPATION: Yes Soft to palpation Extremity: COMMON NORMALS: no joint enlargement and no pedal edema Neuro: COMMON NORMALS: patient oriented x3 and moves all extremities Skin: COMMON NORMALS: no rashes or lesions noted GENERAL SKIN EXAM: no rashes or lesions noted Data : 04/18/20 15:59 04/20/20 09:33 A&P Assessment and plan (1) Atrial fibrillation: A. fib with RVR, paroxysmal, given persistent symptomatic A. fib currently, with recent cardioversion 04/13/2020 at [facility] in [place] by Dr. Post (her eyeglass inspector), requested cardiology consultation, appreciate assessment and recommendations. Starting amiodarone. Continue metoprolol. Cardizem drip as needed. Continue Xarelto. -Symptomatic as evidenced by shortness of breath, chest discomfort -Remains on Cardizem drip, wean off as tolerated -Telemetry monitoring TSH within normal limits Status: Acute Qualifiers: Atrial fibrillation type: paroxysmal Qualified Code(s): I48.0 - Paroxysmal atrial fibrillation (2) New onset of congestive heart failure: Continue Lasix, optimize control of A. fib Status: Acute (3) Diabetes mellitus: -A1c at goal-6.6 -Acucheks, ISS, Lantus, hypoglycemia precautions -cardiac consistent carb diet as tolerated -hold metformin Status: Chronic Qualifiers: Diabetes mellitus type: type 2 Diabetes mellitus technician terminal and repeater insulin use: with technician terminal and repeater use Diabetes mellitus complication status: with kidney complications Diabetes mellitus complication detail: with chronic kidney disease Chronic kidney disease stage: stage 2 (mild) Qualified Code(s): E11.22 - Type 2 diabetes mellitus with diabetic chronic kidney disease; N18.2 - Chronic kidney disease, stage 2 (mild); Z79.4 - bed bug exterminator (current) use of insulin (4) Hypertension: -noted hypertension, increase dose of ACEi -continue BB Status: Chronic Qualifiers: Hypertension type: essential hypertension Qualified Code(s): I10 - Essential (primary) hypertension Additional A&P Information -hx of urinary incontinence: on oxybutynin -CKD stage 2; baseline Cr wnl -DVT ppx not needed as on Xarelto -Dispo: home -Code status: FULL code Attestations Medical Necessity Statement*: Continue admission for optimization of difficult to control paroxysmal atrial fibrillation which is symptomatic, also with CHF. 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
[2020-04-20 20:51] LABS: Glucose Point of Care 233 mg/dL (70-110)
[2020-04-20 22:17] LABS: Add Urine Microscopic? NO
[2020-04-20 22:37] LABS: Bilirubin Urine Neg (Negative); Blood Urine Neg (Negative); Glucose Urine UA Norm (Normal); Ketones Urine Negative (Negative); Leukocyte Esterase Urine Negative (Negative); Nitrate Urine Negative (Negative); Protein Urine Neg (Negative); Urine Appearance Clear (CLEAR); Urine Color Yellow (Yellow); Urobilinogen Urine Norm (Negative); pH Urine 6 (5-7)
[2020-04-21] VITALS (9 sets, daily range): BP systolic 116–149; BP diastolic 70–113; PULSE 90–110; RESP 20–24; TEMP 35.9–36.8; O2SAT 94–95
[2020-04-21 05:38] LABS: Basophils # 0.1 10^3/uL (0.0-0.1); Basophils % 0.7 %; Eosinophils # 0.1 10^3/uL (0.0-0.8); Hematocrit 37.5 % (37.0-47.0); Lymphocytes # 1.9 10^3/uL (0.8-4.8); Lymphocytes % 20.1 %; Mean Corpuscular Hemoglobin 27.9 pg (28.0-34.0); Mean Corpuscular Volume 87.2 fL (81-99); Monocytes # 1.3 10^3/uL (0.2-0.9); Monocytes % 13.3 %; Neutrophils # 6.23 10^3/uL (1.8-7.7); Neutrophils % 64.5 %; Nucleated Red Blood Cells % 0 %; Platelet Count 200 10^3/cmm (130-400); Red Cell Distribution Width 15.7 % (12.1-15.1); White Blood Count 9.7 10^3/uL (4.0-10.0)
[2020-04-21 06:06] LABS: Alanine Aminotransferase 22 U/L (0-33); Albumin Level 3.3 g/dL (3.5-5.2); Alkaline Phosphatase 53 IU/L (35-105); Anion Gap 16.6 (5-19); Aspartate Amino Transferase 19 U/L (0-32); Blood Urea Nitrogen 11 mg/dL (8-23); Calcium 8.7 mg/dL (8.5-10.5); Carbon Dioxide 23 mmol/L (22-29); Chloride 104 mmol/L (98-107); Globulin 2.7 g/dL (1.3-4.6); Glucose 170 mg/dL (65-115); Magnesium 1.6 mg/dL (1.7-2.3); Osmolality Calculated 293 mOsm/kg (285-295); Potassium 3.6 mmol/L (3.5-5.1); Sodium 140 mmol/L (136-145); Total Bilirubin 0.5 mg/dL (0.15-1.2)
[2020-04-21 06:40] LABS: Glucose Point of Care 163 mg/dL (70-110)
[2020-04-21] MEDS: rivaroxaban 10 mg Tablet 20 MG PO (08:00)
[2020-04-21] MEDS: lisinopril 10 mg Tablet PO (08:01)
[2020-04-21] MEDS: FUROsemide 20 mg Tablet PO (08:01)
[2020-04-21] MEDS: amiodarone 200 mg Tablet 400 MG PO ×3 (08:01→20:35)
[2020-04-21] MEDS: metoprolol tartrate 50 mg Tablet PO (08:01)
[2020-04-21] MEDS: atorvastatin 40 mg Tablet 20 MG PO (08:02)
[2020-04-21] MEDS: acetaminophen 325 mg Tablet 650 MG PO (08:12)
[2020-04-21] MEDS: insulin glargine 100 units/1 mL 18 UNIT SUBCUT (08:14)
[2020-04-21] MEDS: potassium chloride ER 20 mEq Tablet 40 MEQ PO (11:13)
[2020-04-21] MEDS: magnesium sulfate premix 2 GM/50 ML PIGGYBACK IV (11:15)
[2020-04-21 11:32] LABS: Glucose Point of Care 258 mg/dL (70-110)
--- NOTE | 2020-04-21 12:27 | DCPLANNER ---
IMM completed on 04/21/2020 @ 6225. Copy of rights given to pt.
--- NOTE | 2020-04-21 13:54 | PC.NURSE ---
Received a call from Doctor Received telephone order read back from Dr. Felix to resume Digoxin 250 mcg now then 30-40 mins to stop Cardizem drip. Resumed med as order for now but at some point it schedules for tomorrow instead. Called pharmacist and discussion to give pt one time dose at this time since original order has been on hold since this morning.
[2020-04-21] MEDS: digoxin 250 mcg Tablet PO (14:17)
[2020-04-21 16:21] LABS: Glucose Point of Care 165 mg/dL (70-110)
--- NOTE | 2020-04-21 17:35 | PM.PN ---
Subjective Subjective: Interval history: She says she is doing about the same. 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 Vitals/I&O/Wt Last Vital Signs Temp 96.6 F L 04/21/20 14:46 Pulse 106 H 04/21/20 14:46 Resp 22 H 04/21/20 14:46 BP 116/70 04/21/20 14:46 Pulse Ox 95 04/21/20 14:46 04/21/20 04/21/20 04/21/20 06:59 14:59 22:59 Intake Total 458 / 458 111.75 / 569.75 Balance 458 / 458 111.75 / 569.75 Physical Exam Const: COMMON NORMALS: no acute distress and patient oriented x3 OTHER: Sitting up in bed. Awake, alert, conversant. HENMT: COMMON NORMALS: oropharynx normal Neck/C-Spine: COMMON NORMALS: no JVD Resp: COMMON NORMALS: normal respiratory effort and clear to auscultation bilaterally AUSCULTATION: clear to auscultation bilaterally Cardio: COMMON NORMALS: no JVD, S1 normal heart sound present, S2 normal heart sound present and No murmurs present (Cardio) RATE: tachycardic RHYTHM: abnormal rhythm HEART SOUNDS: S1 normal heart sound present and S2 normal heart sound present GI: COMMON NORMALS: Normal to inspection, nondistended, normoactive bowel sounds present, Soft to palpation and non-tender PALPATION: Yes Soft to palpation Extremity: COMMON NORMALS: no joint enlargement and no pedal edema Neuro: COMMON NORMALS: patient oriented x3 and moves all extremities Skin: COMMON NORMALS: no rashes or lesions noted GENERAL SKIN EXAM: no rashes or lesions noted Data : 04/21/20 05:09 04/21/20 05:09 A&P Assessment and plan (1) Atrial fibrillation: Appears to have perhaps a few sinus beats, but otherwise mostly A. fib, still with RVR although heart rates were little bit better in the morning. Continue amiodarone, metoprolol with attempt for cardioversion. Otherwise consideration for DC cardioversion with cardiology. Continue Xarelto. Minimally blood-tinged nasal discharge today. Discussed with her to avoid blowing her nose or inserting any objects in her nose. -Symptomatic -Remains on Cardizem drip as needed. -Telemetry monitoring TSH within normal limits Status: Acute Qualifiers: Atrial fibrillation type: paroxysmal Qualified Code(s): I48.0 - Paroxysmal atrial fibrillation (2) New onset of congestive heart failure: Continue Lasix, optimize control of A. fib Not sure that intake and output is accurate. Will request also monitor weights. Status: Acute (3) Diabetes mellitus: -A1c at goal-6.6 -Acucheks, ISS, Lantus, hypoglycemia precautions -cardiac consistent carb diet as tolerated -hold metformin Status: Chronic Qualifiers: Chronic kidney disease stage: stage 2 (mild) Diabetes mellitus complication detail: with chronic kidney disease Diabetes mellitus complication status: with kidney complications Diabetes mellitus assisted insulin use: with assisted use Diabetes mellitus type: type 2 Qualified Code(s): E11.22 - Type 2 diabetes mellitus with diabetic chronic kidney disease; N18.2 - Chronic kidney disease, stage 2 (mild); Z79.4 - skilled nursing (current) use of insulin (4) Hypertension: -noted hypertension, increase dose of ACEi -continue BB Status: Chronic Qualifiers: Hypertension type: essential hypertension Qualified Code(s): I10 - Essential (primary) hypertension Additional A&P Information -hx of urinary incontinence: on oxybutynin -CKD stage 2; baseline Cr wnl -DVT ppx not needed as on Xarelto -Dispo: home -Code status: FULL code Attestations Medical Necessity Statement*: Continue admission for assessment of management of symptomatic A. fib, CHF. 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
--- NOTE | 2020-04-21 18:00 | PC.NURSE ---
Informed pt and daughter regarding the plan for NIYAH w/ cardioversion tomorrow afternoon Notified patient and daughter on the tentative time will be 12 noon as ordered by doctor and pt will be kept NPO. Pt was asked if there are any questions, pt verbalizes she has been with this procedure before 2 weeks ago. Pt does not have any concerns or questions at this time. Daughter verbalizes understanding as well.
[2020-04-21] MEDS: metoprolol tartrate 50 mg Tablet 100 MG PO (18:01)
--- NOTE | 2020-04-21 19:43 | PC.NURSE ---
Rounding: Patient resting in bed alert and oriented. Talked about her test tomorrow and patient verbalized understanding. Patient denied any pain at this time.
--- NOTE | 2020-04-21 19:46 | PM.PN ---
Subjective Subjective: Interval history: Her HR continues to range from 90's- high 120's. She complains of SOB with ambulation. No CP,dizziness. She is her usual self with out of context jokes and humor. Daughter at bedside at the time of examination. Medications: Reviewed: Yes Medication Review Details: Current Medications Acetaminophen (Acetaminophen 325 Mg Tablet) 650 mg PO Q6H PRN PRN Reason: MILD PAIN Last Admin: 04/21/20 08:12 Dose: 650 mg Documented by: Amiodarone HCl (Amiodarone 200 Mg Tablet) 400 mg PO TID COUNT INCLUDES THE [facility] Last Admin: 04/21/20 14:18 Dose: 400 mg Documented by: Atorvastatin Calcium (Atorvastatin 40 Mg Tablet) 20 mg PO DAILY COUNT INCLUDES THE [facility] Last Admin: 04/21/20 08:02 Dose: 20 mg Documented by: Dextrose (Dextrose 50% Syringe 50 Ml) 25 ml IVP ONCE PRN; Protocol PRN Reason: hypoglycemia protocol Dextrose (Dextrose 50% Syringe 50 Ml) 50 ml IVP PRN PRN; Protocol PRN Reason: hypoglycemia protocol Digoxin (Digoxin 250 Mcg Tablet) 250 mcg PO DAILY COUNT INCLUDES THE [facility] Last Admin: 04/20/20 09:48 Dose: 250 mcg Documented by: Diltiazem HCl (Diltiazem 30 Mg Tablet) 30 mg PO TID PRN PRN Reason: tachycardia Furosemide (Furosemide 20 Mg Tablet) 20 mg PO DAILY COUNT INCLUDES THE [facility] Last Admin: 04/21/20 08:01 Dose: 20 mg Documented by: Glucagon (Glucagon 1 Mg/Ml Inj 1 Ml) 1 mg IM ONCE PRN; Protocol PRN Reason: Adult Acute Hypoglycemia Prot. Dextrose (D5w) 500 mls @ 100 mls/hr IV ONCE PRN; Protocol PRN Reason: Adult Acute Hypoglycemia Prot Insulin Aspart (Insulin Aspart 100 Unit/1 Ml) 0 unit SUBCUT WM&BEDTIME COUNT INCLUDES THE [facility]; Protocol Last Admin: 04/21/20 17:57 Dose: 4 unit Documented by: Insulin Glargine (Insulin Glargine 100 Units/1 Ml) 18 unit SUBCUT DAILY COUNT INCLUDES THE [facility] Last Admin: 04/21/20 08:14 Dose: 18 unit Documented by: Metoprolol Tartrate (Metoprolol Tartrate 50 Mg Tablet) 100 mg PO BID COUNT INCLUDES THE [facility] Last Admin: 04/21/20 18:01 Dose: 100 mg Documented by: Oxybutynin Chloride (Oxybutynin 5 Mg Tablet) 5 mg PO DAILY PRN PRN Reason: MUSCLE SPASMS Rivaroxaban (Rivaroxaban 10 Mg Tablet) 20 mg PO DAILY MARVA Last Admin: 04/21/20 08:00 Dose: 20 mg Documented by: Vitals/I&O/Wt Last Vital Signs Temp 96.6 F L 04/21/20 14:46 Pulse 90 04/21/20 18:00 Resp 22 H 04/21/20 14:46 BP 116/70 04/21/20 14:46 Pulse Ox 95 04/21/20 14:46 04/21/20 04/21/20 04/21/20 06:59 14:59 22:59 Intake Total 458 / 458 351.75 / 809.75 Balance 458 / 458 351.75 / 809.75 Physical Exam Narrative: EXAM NARRATIVE: GENERAL: Averagely built and averagely nourished in no acute distress HEENT: Pupils equal round reactive to light. No pallor or icterus. NECK: central trachea, no JVD,. No carotid bruit. CARDIOVASCULAR SYSTEM: S1-S2 irregular. Tachycardia present. No murmur rubs or gallops. RESPIRATORY SYSTEM: Chest clear to auscultation. No wheezes rhonchi or rubs heard. No use of accessory muscles. ABDOMEN: Soft, nontender and nondistended. Normal bowel sounds present. EXTREMITIES: No cyanosis or clubbing. No edema. No signs of chronic venous insufficiency. CHURN OPERATOR: Patient is alert oriented ?3. No focal neurological deficits. SKIN: Normal turgor and temperature. No breakdown, or nail changes noted. PSYCH: Normal insight and judgment. Data : 04/21/20 05:09 04/21/20 05:09 A&P Assessment and plan (1) Atrial fibrillation: Paroxysmal atrial fibrillation with rapid medical response [id number]= 5/9 , one for hypertension, two for age, one for female sex and one for congestive heart failure. -Records obtained from Dr. Post's office and reviewed. She has missed few dosages on DOAC recently. -After much discussion with the patient and her daughter who is currently visiting from [place], decision was made to continue with amiodarone with plan for NIYAH/cardioversion tomorrow if she does not convert on her own. -Continue Xarelto, digoxin, and d/c Cardizem drip as needed. -increase metoprolol tartrate to 100 mg BID. -Risks and benefits were discussed with the patients. Alternate management options were discussed with the patient as well. Possible complications were reviewed with the patient as well. Plan is to proceed for the procedure tomorrow. Concern for early tachy-bradycardia syndrome: Post CV she remained in HR 40's and held digoxin on her own. She may eventually need either permanent pacemaker placement or AV lucia ablation with permanent pacemaker placement. Status: Acute Qualifiers: Atrial fibrillation type: paroxysmal Qualified Code(s): I48.0 - Paroxysmal atrial fibrillation (2) New onset of congestive heart failure: Likely in setting of A. fib with RVR. -Continue low-dose Lasix Status: Acute (3) Hypertension: -I will hold lisinopril and increase metoprolol. -Continue closely monitor blood pressure and heart rate and further changes based on that. Status: Chronic Qualifiers: Hypertension type: essential hypertension Qualified Code(s): I10 - Essential (primary) hypertension (4) Diabetes mellitus: Status: Chronic Qualifiers: Diabetes mellitus type: type 2 Diabetes mellitus correction insulin use: with exterminator helper use Diabetes mellitus complication status: with kidney complications Diabetes mellitus complication detail: with chronic kidney disease Chronic kidney disease stage: stage 2 (mild) Qualified Code(s): E11.22 - Type 2 diabetes mellitus with diabetic chronic kidney disease; N18.2 - Chronic kidney disease, stage 2 (mild); Z79.4 - terminal supervisor (current) use of insulin Additional A&P Information Elevated troponin in setting of atrial fibrillation with rapid response History of urinary incontinence Thank you for let me to participate in patient's care. Please feel free to call with questions or concerns. Attestations Medical Necessity Statement*: Needs hospital stay for symptomatic A. fib with RVR. Time Spent in Patient Care: Greater than 35 minutes (>than 50% of time spent in counselling and/or direct pt care on unit). 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
[2020-04-21 20:49] LABS: Glucose Point of Care 229 mg/dL (70-110)
[2020-04-22] VITALS (39 sets, daily range): BP systolic 106–177; BP diastolic 57–135; PULSE 53–139; RESP 12–26; TEMP 36.4–37.1; O2SAT 92–100
[2020-04-22] MEDS: dilTIAZem 30 mg Tablet PO (04:39)
--- NOTE | 2020-04-22 04:41 | PC.NURSE ---
PAtient given PRN cardizem for sustain heartrate of 115 to 125.
[2020-04-22 04:57] LABS: Basophils # 0.1 10^3/uL (0.0-0.1); Eosinophils # 0.1 10^3/uL (0.0-0.8); Eosinophils % 1.5 %; Hematocrit 39.2 % (37.0-47.0); Hemoglobin 12.3 g/dL (11.5-15.3); Lymphocytes # 2.2 10^3/uL (0.8-4.8); Lymphocytes % 24.7 %; Mean Corpuscular HGB Conc 31.4 g/dL (30.0-36.0); Mean Corpuscular Hemoglobin 27.6 pg (28.0-34.0); Mean Corpuscular Volume 87.9 fL (81-99); Mean Platelet Volume 11.3 fL (7.4-10.4); Monocytes # 1.1 10^3/uL (0.2-0.9); Monocytes % 12.6 %; Neutrophils # 5.38 10^3/uL (1.8-7.7); Nucleated Red Blood Cells % 0 %; Platelet Count 222 10^3/cmm (130-400); Red Blood Count 4.46 10^6/uL (4.1-5.3); Red Cell Distribution Width 15.6 % (12.1-15.1)
[2020-04-22 05:26] LABS: Alanine Aminotransferase 22 U/L (0-33); Albumin Level 3.2 g/dL (3.5-5.2); Alkaline Phosphatase 53 IU/L (35-105); Anion Gap 15.2 (5-19); Aspartate Amino Transferase 18 U/L (0-32); Blood Urea Nitrogen 12 mg/dL (8-23); Calcium 8.6 mg/dL (8.5-10.5); Carbon Dioxide 23 mmol/L (22-29); Chloride 106 mmol/L (98-107); Globulin 2.9 g/dL (1.3-4.6); Glucose 168 mg/dL (65-115); Osmolality Calculated 294 mOsm/kg (285-295); Potassium 4.2 mmol/L (3.5-5.1); Sodium 140 mmol/L (136-145); Total Bilirubin 0.4 mg/dL (0.15-1.2); Total Protein 6.1 g/dL (6.6-8.7)
[2020-04-22 05:27] LABS: NT Pro B Type Natriuretic Pept 1718 pg/mL (0-450)
[2020-04-22 06:41] LABS: Glucose Point of Care 168 mg/dL (70-110)
[2020-04-22] MEDS: insulin glargine 100 units/1 mL 18 UNIT SUBCUT (08:51)
[2020-04-22] MEDS: rivaroxaban 10 mg Tablet 20 MG PO (08:52)
[2020-04-22] MEDS: amiodarone 200 mg Tablet 400 MG PO ×2 (08:52→14:05)
--- NOTE | 2020-04-22 08:52 | ANES.PREANE2 ---
Pre-Anesthetic Assessment Pre-Anesthetic Assessment: Height/Weight: Height 1.69 m Weight 77.111 kg Temp Pulse Resp BP Pulse Ox 97.9 F 104 H 19 H 116/90 94 04/22/20 04:00 04/22/20 04:00 04/22/20 04:00 04/22/20 04:00 04/22/20 04:00 Proposed Procedure: Operation Date: 04/22/20 12:00 Proposed Procedures p NIYAH (Transesophageal Echocardiogram)(Not Applicable) - Cailin Felix MD Familial anesthetic complications: none Was Beta Elina taken within 24 hours: N/A Last intake: NPO > 8 hrs Social: Social History: No alcohol and No tobacco Exam: Pre-Anes Outpt Exam: alert, oriented x 3, clear to auscultation bilaterally and regular rate & rhythm Airway: MP: 3 Dentition: False CV/HEM: CV/HEM: Afib (w/ RVR), CHF (new onset w/ a fib) and HTN Comments: Patient was cardioverted in [place] and remained bradycardic (HR 40s afterwards) concern for tachy-shun syndrome. She went back into a fib w/ RVR - placed on cardizem, dignoxin, xarelto. Plan is for NIYAH + cardioversion ECHO CONCLUSIONS Normal left ventricular size and systolic function, EF 55 %. Segmental wall motion analysis difficult because atrial fibrillation. [id number] tricuspid valve regurgitation. Moderate pulmonary hypertension with estimated pulmonary artery peak systolic pressure of 71 mmHg. No gross abnormalities were noted. Trace pulmonary valve regurgitation. Thickened aortic valve. Thickened mitral valve. Mild mitral valve regurgitation. Biatrial enlargement, right worse than the left There is no pericardial effusion. There are no intracardiac masses. No previous study is available for comparison. Metabolic: Metabolic: DM Anesthetic Plan: ASA status: 4 Anesthesia: MAC Risk of > 500 ml blood loss (7ml/kg in children): No Meds/Allergies Current Medications: Current Medications Generic Name Dose Route Start Last Admin Trade Name Freq PRN Reason Stop Dose Admin Acetaminophen 650 mg 04/21/20 08:02 04/21/20 08:12 Acetaminophen 32 5 Mg Tablet PO 650 mg Q6H PRN Administration MILD PAIN Amiodarone HCl 400 mg 04/20/20 17:00 04/21/20 20:35 Amiodarone 200 M g Tablet PO 400 mg TID MARVA Administration Atorvastatin Calci um 20 mg 04/19/20 09:00 04/21/20 08:02 Atorvastatin 40 Mg Tablet PO 20 mg DAILY MARVA Administration Digoxin 250 mcg 04/19/20 09:00 04/20/20 09:48 Digoxin 250 Mcg Tablet PO 250 mcg DAILY MARVA Administration Diltiazem HCl 30 mg 04/21/20 17:26 04/22/20 04:39 Diltiazem 30 Mg Tablet PO 30 mg TID PRN Administration tachycardia Furosemide 20 mg 04/19/20 09:00 04/21/20 08:01 Furosemide 20 Mg Tablet PO 20 mg DAILY [facility] Administration Insulin Aspart 0 unit 04/18/20 21:22 04/21/20 20:36 Insulin Aspart 1 00 Unit/1 Ml SUBCUT 8 unit WM&BEDTIME MARVA Administration Protocol Insulin Glargine 18 unit 04/19/20 09:00 04/21/20 08:14 Insulin Glargine 100 Units/1 Ml SUBCUT 18 unit DAILY [facility] Administration Metoprolol Tartrat e 100 mg 04/21/20 18:00 04/21/20 18:01 Metoprolol Tartr ate 50 Mg Tablet PO 100 mg BID [facility] Administration Rivaroxaban 20 mg 04/19/20 09:00 04/21/20 08:00 Rivaroxaban 10 M g Tablet PO 20 mg DAILY MARVA Administration Additional Medication Information: Current Medications Acetaminophen (Acetaminophen 325 Mg Tablet) 650 mg PO Q6H PRN PRN Reason: MILD PAIN Last Admin: 04/21/20 08:12 Dose: 650 mg Documented by: Amiodarone HCl (Amiodarone 200 Mg Tablet) 400 mg PO TID [facility] Last Admin: 04/21/20 14:18 Dose: 400 mg Documented by: Atorvastatin Calcium (Atorvastatin 40 Mg Tablet) 20 mg PO DAILY [facility] Last Admin: 04/21/20 08:02 Dose: 20 mg Documented by: Dextrose (Dextrose 50% Syringe 50 Ml) 25 ml IVP ONCE PRN; Protocol PRN Reason: hypoglycemia protocol Dextrose (Dextrose 50% Syringe 50 Ml) 50 ml IVP PRN PRN; Protocol PRN Reason: hypoglycemia protocol Digoxin (Digoxin 250 Mcg Tablet) 250 mcg PO DAILY [facility] Last Admin: 04/20/20 09:48 Dose: 250 mcg Documented by: Diltiazem HCl (Diltiazem 30 Mg Tablet) 30 mg PO TID PRN PRN Reason: tachycardia Furosemide (Furosemide 20 Mg Tablet) 20 mg PO DAILY [facility] Last Admin: 04/21/20 08:01 Dose: 20 mg Documented by: Glucagon (Glucagon 1 Mg/Ml Inj 1 Ml) 1 mg IM ONCE PRN; Protocol PRN Reason: Adult Acute Hypoglycemia Prot. Dextrose (D5w) 500 mls @ 100 mls/hr IV ONCE PRN; Protocol PRN Reason: Adult Acute Hypoglycemia Prot Insulin Aspart (Insulin Aspart 100 Unit/1 Ml) 0 unit SUBCUT WM&BEDTIME MARVA; Protocol Last Admin: 04/21/20 17:57 Dose: 4 unit Documented by: Insulin Glargine (Insulin Glargine 100 Units/1 Ml) 18 unit SUBCUT DAILY [facility] Last Admin: 04/21/20 08:14 Dose: 18 unit Documented by: Metoprolol Tartrate (Metoprolol Tartrate 50 Mg Tablet) 100 mg PO BID [facility] Last Admin: 04/21/20 18:01 Dose: 100 mg Documented by: Oxybutynin Chloride (Oxybutynin 5 Mg Tablet) 5 mg PO DAILY PRN PRN Reason: MUSCLE SPASMS Rivaroxaban (Rivaroxaban 10 Mg Tablet) 20 mg PO DAILY [facility] Last Admin: 04/21/20 08:00 Dose: 20 mg Documented by: PFSH Anesthesia PFS: Medical History Diabetes mellitus History of cardioversion Hypertension Urinary incontinence Surgical History No pertinent past surgical history Family History Other Family history non-contributory Social History Smoking and tobacco status: never smoked Alcohol intake: never Substance/Drug Use: never Lives independently: Yes Housing: House Data Anesthesia CBC & Chem 7: 04/22/20 04:15 04/22/20 04:15 Other Labs: Laboratory Results - last 48 hr 04/19/20 04/20/20 04/20/20 21:56 03:14 09:33 WBC RBC Hgb Hct MCV MCH MCHC RDW Plt Count MPV Neut % (Auto) Lymph % (Auto) [place] % (Auto) Eos % (Auto) Baso % (Auto) Neut # (Auto) Lymph # (Auto) [place] # (Auto) Eos # (Auto) Baso # (Auto) Nucleated RBC % (auto) Nucleated RBCs # Sodium Cancelled 139 Potassium Cancelled 3.7 Chloride Cancelled 104 Carbon Dioxide Cancelled 24 Anion Gap Cancelled 14.7 BUN Cancelled 12 Creatinine Cancelled 0.8 GFR Calculation Cancelled Not Reportable Glucose Cancelled 228 H POC Glucose Calculated Osmolality Cancelled 295 Calcium Cancelled 8.7 Magnesium Cancelled 1.7 Total Bilirubin AST ALT Alkaline Phosphatase NT-Pro-B Natriuret Pep Total Protein Albumin Globulin Urine Color Yellow Urine Appearance Clear Urine pH 6 Ur Specific [place] 1.010 Urine Protein Neg Urine Glucose (UA) Norm Urine Ketones Negative Urine Blood Neg Urine Nitrate Negative Urine Bilirubin Neg Urine Urobilinogen Norm Ur Leukocyte Esterase Negative 04/20/20 04/20/20 04/20/20 10:49 16:00 19:49 WBC RBC Hgb Hct MCV MCH MCHC RDW Plt Count MPV Neut % (Auto) Lymph % (Auto) [place] % (Auto) Eos % (Auto) Baso % (Auto) Neut # (Auto) Lymph # (Auto) [place] # (Auto) Eos # (Auto) Baso # (Auto) Nucleated RBC % (auto) Nucleated RBCs # Sodium Potassium Chloride Carbon Dioxide Anion Gap BUN Creatinine GFR Calculation Glucose POC Glucose 237 228 233 Calculated Osmolality Calcium Magnesium Total Bilirubin AST ALT Alkaline Phosphatase NT-Pro-B Natriuret Pep Total Protein Albumin Globulin Urine Color Urine Appearance Urine pH Ur Specific [place] Urine Protein Urine Glucose (UA) Urine Ketones Urine Blood Urine Nitrate Urine Bilirubin Urine Urobilinogen Ur Leukocyte Esterase 04/21/20 04/21/20 04/21/20 05:09 05:09 06:28 WBC 9.7 RBC 4.30 Hgb 12.0 Hct 37.5 MCV 87.2 MCH 27.9 L MCHC 32.0 RDW 15.7 H Plt Count 200 MPV 11.0 H Neut % (Auto) 64.5 Lymph % (Auto) 20.1 Swisher % (Auto) 13.3 Eos % (Auto) 1.0 Baso % (Auto) 0.7 Neut # (Auto) 6.23 Lymph # (Auto) 1.9 Swisher # (Auto) 1.3 H Eos # (Auto) 0.1 Baso # (Auto) 0.1 Nucleated RBC % (auto) 0 Nucleated RBCs # 0.0 Sodium 140 Potassium 3.6 Chloride 104 Carbon Dioxide 23 Anion Gap 16.6 BUN 11 Creatinine 0.8 GFR Calculation Not Reportable Glucose 170 H POC Glucose 163 Calculated Osmolality 293 Calcium 8.7 Magnesium 1.6 L Total Bilirubin 0.5 AST 19 ALT 22 Alkaline Phosphatase 53 NT-Pro-B Natriuret Pep Total Protein 6.0 L Albumin 3.3 L Globulin 2.7 Urine Color Urine Appearance Urine pH Ur Specific [place] Urine Protein Urine Glucose (UA) Urine Ketones Urine Blood Urine Nitrate Urine Bilirubin Urine Urobilinogen Ur Leukocyte Esterase 04/21/20 04/21/20 04/21/20 10:39 15:59 20:03 WBC RBC Hgb Hct MCV MCH MCHC RDW Plt Count MPV Neut % (Auto) Lymph % (Auto) [place]isher % (Auto) Eos % (Auto) Baso % (Auto) Neut # (Auto) Lymph # (Auto) [place] # (Auto) Eos # (Auto) Baso # (Auto) Nucleated RBC % (auto) Nucleated RBCs # Sodium Potassium Chloride Carbon Dioxide Anion Gap BUN Creatinine GFR Calculation Glucose POC Glucose 258 165 229 Calculated Osmolality Calcium Magnesium Total Bilirubin AST ALT Alkaline Phosphatase NT-Pro-B Natriuret Pep Total Protein Albumin Globulin Urine Color Urine Appearance Urine pH Ur Specific [place] Urine Protein Urine Glucose (UA) Urine Ketones Urine Blood Urine Nitrate Urine Bilirubin Urine Urobilinogen Ur Leukocyte Esterase 04/22/20 04/22/20 04/22/20 04:15 04:15 04:15 WBC 9.0 RBC 4.46 Hgb 12.3 Hct 39.2 MCV 87.9 MCH 27.6 L MCHC 31.4 RDW 15.6 H Plt Count 222 MPV 11.3 H Neut % (Auto) 60.0 Lymph % (Auto) 24.7 Swisher % (Auto) 12.6 Eos % (Auto) 1.5 Baso % (Auto) 1.0 Neut # (Auto) 5.38 Lymph # (Auto) 2.2 Swisher # (Auto) 1.1 H Eos # (Auto) 0.1 Baso # (Auto) 0.1 Nucleated RBC % (auto) 0 Nucleated RBCs # 0.0 Sodium 140 Potassium 4.2 Chloride 106 Carbon Dioxide 23 Anion Gap 15.2 BUN 12 Creatinine 0.8 GFR Calculation Not Reportable Glucose 168 H POC Glucose Calculated Osmolality 294 Calcium 8.6 Magnesium 2.0 Total Bilirubin 0.4 AST 18 ALT 22 Alkaline Phosphatase 53 NT-Pro-B Natriuret Pep 1718 H Total Protein 6.1 L Albumin 3.2 L Globulin 2.9 Urine Color Urine Appearance Urine pH Ur Specific [place] Urine Protein Urine Glucose (UA) Urine Ketones Urine Blood Urine Nitrate Urine Bilirubin Urine Urobilinogen Ur Leukocyte Esterase 04/22/20 06:29 WBC RBC Hgb Hct MCV MCH MCHC RDW Plt Count MPV Neut % (Auto) Lymph % (Auto) [place] % (Auto) Eos % (Auto) Baso % (Auto) Neut # (Auto) Lymph # (Auto) [place] # (Auto) Eos # (Auto) Baso # (Auto) Nucleated RBC % (auto) Nucleated RBCs # Sodium Potassium Chloride Carbon Dioxide Anion Gap BUN Creatinine GFR Calculation Glucose POC Glucose 168 Calculated Osmolality Calcium Magnesium Total Bilirubin AST ALT Alkaline Phosphatase NT-Pro-B Natriuret Pep Total Protein Albumin Globulin Urine Color Urine Appearance Urine pH Ur Specific [place] Urine Protein Urine Glucose (UA) Urine Ketones Urine Blood Urine Nitrate Urine Bilirubin Urine Urobilinogen Ur Leukocyte Esterase Cardiac Studies: No Data to Display
[2020-04-22] MEDS: metoprolol tartrate 50 mg Tablet 100 MG PO (08:53)
[2020-04-22] MEDS: FUROsemide 20 mg Tablet PO (08:53)
[2020-04-22] MEDS: atorvastatin 40 mg Tablet 20 MG PO (08:53)
[2020-04-22 11:14] LABS: Glucose Point of Care 168 mg/dL (70-110)
--- NOTE | 2020-04-22 12:02 | P.PN_ITS ---
Subjective Subjective: Interval history: She continues to have some runny nose. Yesterday was having headache, but this resolved. She is feeling some nonspecific symptoms in her chest like something is pushing out for more than. She is feeling somewhat cold in the room. Vitals/I&O/Wt Last Vital Signs Temp 98.4 F 04/22/20 10:34 Pulse 107 H 04/22/20 10:34 Resp 22 H 04/22/20 10:34 BP 131/94 04/22/20 10:34 Pulse Ox 94 04/22/20 10:34 04/21/20 04/22/20 04/22/20 22:59 06:59 14:59 Intake Total 471.75 / 929.75 0 / 0 Balance 471.75 / 929.75 0 / 0 Weight last 48 hrs Weight 77.111 kg Physical Exam Const: COMMON NORMALS: no acute distress and patient oriented x3 OTHER: Reclined in bed. Awake, alert, conversant. HENMT: COMMON NORMALS: oropharynx normal Neck/C-Spine: COMMON NORMALS: no JVD Resp: COMMON NORMALS: normal respiratory effort and clear to auscultation bilaterally AUSCULTATION: clear to auscultation bilaterally Cardio: COMMON NORMALS: no JVD, S1 normal heart sound present, S2 normal heart sound present and No murmurs present (Cardio) RATE: tachycardic RHYTHM: abnormal rhythm HEART SOUNDS: S1 normal heart sound present and S2 normal heart sound present GI: COMMON NORMALS: Normal to inspection, nondistended, normoactive bowel sounds present, Soft to palpation and non-tender PALPATION: Yes Soft to palpation Extremity: COMMON NORMALS: no joint enlargement and no pedal edema Neuro: COMMON NORMALS: patient oriented x3 and moves all extremities Skin: COMMON NORMALS: no rashes or lesions noted GENERAL SKIN EXAM: no rashes or lesions noted Data : 04/22/20 04:15 04/22/20 04:15 A&P Assessment and plan (1) Atrial fibrillation: Persistently in atrial fibrillation during this hospitalization. Has not converted to sinus rhythm, and so had discussed with cardiology and they will be proceeding with NIYAH cardioversion today. Continue amiodarone, metoprolol. Continue Xarelto. Minimally blood-tinged nasal discharge resolved. -Symptomatic -Remains on Cardizem drip as needed. -Telemetry monitoring TSH within normal limits Status: Acute Qualifiers: Atrial fibrillation type: paroxysmal Qualified Code(s): I48.0 - Paroxysmal atrial fibrillation (2) New onset of congestive heart failure: Continue Lasix, optimize control of A. fib Not sure that intake and output is accurate. Weight appears consistent. 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: with equipment operator intermodal yard use Diabetes mellitus complication status: with kidney complications Diabetes mellitus complication detail: with chronic kidney disease Chronic kidney disease stage: stage 2 (mild) Qualified Code(s): E11.22 - Type 2 diabetes mellitus with diabetic chronic kidney disease; N18.2 - Chronic kidney disease, stage 2 (mild); Z79.4 - retirement (current) use of insulin (4) Hypertension: -noted hypertension, increase dose of ACEi -continue BB Status: Chronic Qualifiers: Hypertension type: essential hypertension Qualified Code(s): I10 - Essential (primary) hypertension Additional A&P Information Nasal congestion: She feels this is due to dry air in the room. She had a headache yesterday, which she says had gone away. She is feeling somewhat cold but denies chills. Denies muscle ache. She states she has chronic cough from the lisinopril which she has been discussing with her primary care provider and he decided to continue the medication. Rapid COVID-19 test is requested. She says prior to this was tested 2 weeks ago and was negative. Chest pressure: may be secondary to AFib w RVR. Assess trop and EKG series. -hx of urinary incontinence: on oxybutynin -CKD stage 2; baseline Cr wnl -DVT ppx not needed as on Xarelto -Dispo: home -Code status: FULL code Attestations Medical Necessity Statement*: Continue admission for assessment management of symptomatic atrial fibrillation with RVR. 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
--- NOTE | 2020-04-22 12:07 | ECG_ITS ---
[facility] Test Date: 2020-04-22 Pat Name: Sariah Yip Department: Room: 103 Gender: Female Shutdown Coordinator: : 1940 Requested By: Omar Desir Order Number: [id number] Kristen MD: Cailin Felix M.D. Measurements Intervals [place] Rate: 114 P: AL: QRS: -45 QRSD: 86 T: -30 QT: 278 QTc: 384 Interpretive Statements ATRIAL FIBRILLATION WITH RAPID VENTRICULAR RESPONSE LEFT ANTERIOR FASCICULAR BLOCK [QRS AXIS <= -45, QR IN I, RS IN II] POSSIBLE ANTERIOR MYOCARDIAL INFARCTION [30 ms Q WAVE IN V3/V4, OR R < 0.2 mV IN V4], PROBABLY OLD Compared to ECG 04/19/2020 05:27:40 Left anterior fascicular block now present Myocardial infarct finding now present Intraventricular conduction delay no longer present ST (T wave) deviation no longer present Electronically Signed On 04-22-2020 14:17:12 AUXILIARY OPERATOR by Cailin Felix M.D. [id number]
[2020-04-22] MEDS: sodium chloride 0.9% 1,000 ML 300 ML IV (12:45)
[2020-04-22 12:49] LABS: SARS Covid-2 Antigen Negative (Negative)
[2020-04-22 12:50] LABS: Troponin(5th) Baseline 37 ng/L (0-10)
--- NOTE | 2020-04-22 13:16 | ECG_ITS ---
[facility] Test Date: 2020-04-22 Pat Name: Sariah Yip Department: Room: 103 Gender: Female Credit Union Field Examiner: : 1940 Requested By: Cailin Felix Order Number: [id number] Kristen MD: Cailin Felix M.D. Measurements Intervals [place] Rate: 52 P: 85 MO: 187 QRS: -43 QRSD: 110 T: 267 QT: 425 QTc: 399 Interpretive Statements SINUS BRADYCARDIA MARKED LEFT AXIS DEVIATION [QRS AXIS < -30] ST DEVIATION AND MODERATE T-WAVE ABNORMALITY, CONSIDER ANTEROLATERAL ISCHEMIA ST DEVIATION AND MODERATE T-WAVE ABNORMALITY, CONSIDER INFERIOR ISCHEMIA Compared to ECG 04/22/2020 12:21:39 Left-axis deviation now present T-wave abnormality now present Possible ischemia now present Atrial fibrillation no longer present Left anterior fascicular block no longer present Myocardial infarct finding no longer present Electronically Signed On 04-22-2020 14:17:53 CONTROLLER INSTRUCTOR by Cailin Felix M.D. [id number]
--- NOTE | 2020-04-22 14:19 | P.PN_ITS ---
Subjective Subjective: Interval history: She remains in atrial fibrillation with RVR. No CP, palpitation. + SOB. Plan for NIYAH/Cv today. Medications: Reviewed: Yes Medication Review Details: Current Medications Acetaminophen (Acetaminophen 325 Mg Tablet) 650 mg PO Q6H PRN PRN Reason: MILD PAIN Last Admin: 04/21/20 08:12 Dose: 650 mg Documented by: Amiodarone HCl (Amiodarone 200 Mg Tablet) 400 mg PO TID [facility] Last Admin: 04/22/20 14:05 Dose: 400 mg Documented by: Atorvastatin Calcium (Atorvastatin 40 Mg Tablet) 20 mg PO DAILY [facility] Last Admin: 04/22/20 08:53 Dose: 20 mg Documented by: Dextrose (Dextrose 50% Syringe 50 Ml) 25 ml IVP ONCE PRN; Protocol PRN Reason: hypoglycemia protocol Dextrose (Dextrose 50% Syringe 50 Ml) 50 ml IVP PRN PRN; Protocol PRN Reason: hypoglycemia protocol Diltiazem HCl (Diltiazem 30 Mg Tablet) 30 mg PO TID PRN PRN Reason: tachycardia Last Admin: 04/22/20 04:39 Dose: 30 mg Documented by: Furosemide (Furosemide 20 Mg Tablet) 20 mg PO DAILY [facility] Last Admin: 04/22/20 08:53 Dose: 20 mg Documented by: Glucagon (Glucagon 1 Mg/Ml Inj 1 Ml) 1 mg IM ONCE PRN; Protocol PRN Reason: Adult Acute Hypoglycemia Prot. Dextrose (D5w) 500 mls @ 100 mls/hr IV ONCE PRN; Protocol PRN Reason: Adult Acute Hypoglycemia Prot Sodium Chloride (Sodium Chloride 0.9%) 1,000 mls @ 100 mls/hr IV .Q10H [facility] Last Infusion: 04/22/20 13:45 Dose: Infused Documented by: Insulin Aspart (Insulin Aspart 100 Unit/1 Ml) 0 unit SUBCUT WM&BEDTIME MARVA; Pr otocol Last Admin: 04/22/20 11:25 Dose: Not Given Documented by: Insulin Glargine (Insulin Glargine 100 Units/1 Ml) 18 unit SUBCUT DAILY [facility] Last Admin: 04/22/20 08:51 Dose: 18 unit Documented by: Metoprolol Tartrate (Metoprolol Tartrate 50 Mg Tablet) 100 mg PO BID [facility] Last Admin: 04/22/20 08:53 Dose: 100 mg Documented by: Oxybutynin Chloride (Oxybutynin 5 Mg Tablet) 5 mg PO DAILY PRN PRN Reason: MUSCLE SPASMS Rivaroxaban (Rivaroxaban 10 Mg Tablet) 20 mg PO DAILY [facility] Last Admin: 04/22/20 08:52 Dose: 20 mg Documented by: Vitals/I&O/Wt Last Vital Signs Temp 98.4 F 04/22/20 10:34 Pulse 107 H 04/22/20 10:34 Resp 22 H 04/22/20 10:34 BP 131/94 04/22/20 10:34 Pulse Ox 94 04/22/20 10:34 04/21/20 04/22/20 04/22/20 22:59 06:59 14:59 Intake Total 471.75 / 929.75 300 / 300 Balance 471.75 / 929.75 300 / 300 Weight last 48 hrs Weight 170 lb Physical Exam Narrative: EXAM NARRATIVE: GENERAL: Averagely built and averagely nourished in no acute distress HEENT: Pupils equal round reactive to light. No pallor or icterus. NECK: central trachea, no JVD,. No carotid bruit. CARDIOVASCULAR SYSTEM: S1-S2 irregular. Tachycardia present. No murmur rubs or gallops. RESPIRATORY SYSTEM: Chest clear to auscultation. No wheezes rhonchi or rubs heard. No use of accessory muscles. ABDOMEN: Soft, nontender and nondistended. Normal bowel sounds present. EXTREMITIES: No cyanosis or clubbing. No edema. No signs of chronic venous insufficiency. 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 No focal neurological deficits. SKIN: Normal turgor and temperature. No breakdown, or nail changes noted. PSYCH: Normal insight and judgment. Data : 04/22/20 04:15 04/22/20 04:15 A&P Assessment and plan (1) Atrial fibrillation: Paroxysmal atrial fibrillation with rapid medical response [id number]= 5/9 , one for hypertension, two for age, one for female sex and one for congestive heart failure. -Records obtained from Dr. Post's office and reviewed. She has missed few dosages on DOAC recently. -After much discussion with the patient and her daughter who is currently visiting from [place], decision was made to continue with amiodarone with plan for NIYAH/cardioversion tomorrow if she does not convert on her own. -Continue Xarelto and metoprolol tartrate. D/C Digoxin -Risks and benefits were discussed with the patients. Alternate management options were discussed with the patient as well. Possible complications were reviewed with the patient as well. Plan is to proceed for the procedure today. Concern for early tachy-bradycardia syndrome: Post CV she remained in HR 40's and held digoxin on her own. She may eventually need either permanent pacemaker placement or AV lucia ablation with permanent pacemaker placement. Patient underwent successful NIYAH/Cv with anglican of SR/SB. Status: Acute Qualifiers: Atrial fibrillation type: paroxysmal Qualified Code(s): I48.0 - Paroxysmal atrial fibrillation (2) New onset of congestive heart failure: Likely in setting of A. fib with RVR. -Continue low-dose Lasix Status: Acute (3) Hypertension: -I will hold lisinopril and increase metoprolol. -Continue closely monitor blood pressure and heart rate and further changes based on that. 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 Please feel free to call with questions or concerns. Attestations Medical Necessity Statement*: Needs hospital stay for symptomatic A. fib with RVR. Time Spent in Patient Care: Greater than 35 minutes (>than 50% of time spent in counselling and/or direct pt care on unit) . Procedures Time out/Consent Time Out Performed: Yes Consent for Procedure: Consent obtained from patient, Risks & Benefits reviewed and Agrees to proceed with procedure Procedure Narrative NIYAH Procedure note Indication: Symptomatic atrial fibrillation before cardioversion Sedation: Propofol by anesthesia Procedure was explained to the patient in detail and informed consent was obtained. Timeout was called. After achieving adequate sedation, the probe was inserted on first attempt. No blood on the probe post procedure. Prelim report: Normal left ventricle size and systolic function. No left atrial or left atrial appendage mass or thrombus visualized. No ASD or PFO identified. Full report to follow. Cardioversion procedure note. Indication: Symptomatic atrial fibrillation Anticoagulation: Eliquis Sedation: Propofol by anesthesia Procedure was explained to the patient in detail. Risks and benefits of the procedures were discussed. Informed consent was obtained. After time out was called patient received sedation. Pads were placed anteroposteriorly. She received 150 J of synchronized biphasic shock ?1 with anglican of rhythm to sinus bradycardia. Patient tolerated the procedure well. Recovery: Patient tolerated the procedure well. Coding Level of Care Code Acute Take Away Attendant for [facility] Fwd Diagnoses Atrial fibrillation I48.0 Atrial fibrillation type: paroxysmal New onset of congestive heart failure I50.9 Hypertension I10 Hypertension type: essential hypertension Diabetes mellitus E11.22; N18.2; Z79.4 Chronic kidney disease stage: stage 2 (mild) Diabetes mellitus complication detail: with chronic kidney disease Diabetes mellitus complication status: with kidney complications Diabetes mellitus custodial insulin use: with custodial use Diabetes mellitus type: type 2 Time Spent (min) 50
[2020-04-22 14:45] LABS: Troponin 5 2HR 34.74 ng/L (0-10)
[2020-04-22 14:48] LABS: Troponin 5 2HR Delta -2.26 ABS# (0-10)
--- NOTE | 2020-04-22 15:23 | PC.NURSE ---
NIYAH/Cardioversion time out performed 1255. procedure start 1256. INYAH scope inserted 1258. Scope out 1312. Zoll charged to 150 j. shock administered 1314. Patient entered sinus bradycardia. Rhythm confirmed with 12 lead EKG. Verbal order from Dr. eFlix to administer 1500 dose of Amiodarone once patient was awake. RBVO. Nurse to continue to monitor. VSS throughout procedure. See flowsheet.
[2020-04-22 16:16] LABS: Glucose Point of Care 198 mg/dL (70-110)
--- NOTE | 2020-04-22 17:34 | USCV_ITS ---
Sariah Yip Age: 79 Gender: F : 1940 Exam Date: 04/22/2020 11:16 Ordering Phys: Cailin Felix MD ([email or web address]) Technologist: Kaila Martinez Exam Location: [facility] [place] Indication: AFIB BP: / HR: Rhythm: Sinus Technical Quality: Good MEASUREMENTS (Male / Female) Normal Values Medications Patient given IV sedation by anesthesia service, for details please refer to the anesthesia report. Complications None. BP 144/102 mm Hg and HR 124 bpm. Proc. Components NIYAH was performed at multiple levels. FINDINGS Left Ventricle Normal left ventricular cavity size. Low normal left ventricular systolic function. Left ventricular ejection fraction is estimated at 55 %. No regional wall motion abnormalities. Right Ventricle Normal right ventricular size and systolic function. Right ventricular systolic pressure 30 mmHg. Right Atrium Normal right atrial size. Left Atrium Moderately increased left atrial size. LA Appendage Normal left atrial appendage. Normal flow velocities in the left atrial appendage. No thrombus visualized in the left atrial appendage. IA Septum Lipomatous hypertrophy of entered atrial septum. No patent foramen ovale. No evidence for an atrial septal defect. Mitral Valve Structurally normal mitral valve. No mitral valve stenosis. Trace mitral valve regurgitation. Aortic Valve Normal-sized aortic root. Moderately thickened trileaflet aortic valve. 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 No aortic valve stenosis. No aortic valve regurgitation. Tricuspid Valve Structurally normal tricuspid valve. Mild tricuspid valve regurgitation. Pulmonic Valve Structurally normal pulmonic valve. No pulmonary valve stenosis. Trace pulmonary valve regurgitation. Pericardium No pericardial effusion. Aorta Grade 3 atheroma noted in proximal descending aorta and aortic arch. No evidence of aortic aneurysm dilation or dissection. CONCLUSIONS 1. Normal left ventricular cavity size. Normal left ventricular systolic function. Left ventricular ejection fraction is estimated at 55 %. No regional wall motion abnormalities. 2. Normal right ventricular size and systolic function. 3. No evidence of left atrial or left atrial appendage thrombus. 4. 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 5. Normal pulmonary artery pressure. Cailin Felix MD (Electronically Signed) Final Date: 22 April 2020 18:43 S
--- NOTE | 2020-04-22 18:07 | ECG_ITS ---
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1940 Requested By: Omar Desir Order Number: [id number] Reading MD: BAMBI BERMUDEZ Measurements Intervals [place] Rate: 61 P: 83 DE: 189 QRS: -46 QRSD: 90 T: 267 QT: 452 QTc: 457 Interpretive Statements SINUS RHYTHM LEFT ANTERIOR FASCICULAR BLOCK [QRS AXIS <= -45, QR IN I, RS IN II] ST DEVIATION AND MODERATE T-WAVE ABNORMALITY, CONSIDER ANTEROLATERAL ISCHEMIA [-0.1+ mV T WAVE IN V3-V6] ST DEVIATION AND MODERATE T-WAVE ABNORMALITY, CONSIDER INFERIOR ISCHEMIA [-0.1+ mV T WAVE IN II/aVF] WARNING: DATA QUALITY MAY AFFECT INTERPRETATION Compared to ECG 04/22/2020 13:23:00 Left anterior fascicular block now present Sinus bradycardia no longer present Left-axis deviation no longer present T-wave abnormality still present Possible ischemia still present Electronically Signed On 04-22-2020 19:39:24 SHIPPING CHECKER by BAMBI BERMUDEZ [id number]
[2020-04-22] MEDS: metoprolol tartrate 25 mg Tablet 12.5 MG PO (18:29)
[2020-04-22] MEDS: lisinopril 10 mg Tablet PO (18:30)
[2020-04-22 18:45] LABS: Troponin 5 6HR 34.36 ng/L (0-10)
[2020-04-22] MEDS: acetaminophen 325 mg Tablet 650 MG PO (19:05)
[2020-04-22 19:35] LABS: Troponin 5 6HR Delta -2.64 ng/L (0-12)
[2020-04-22 20:24] LABS: Glucose Point of Care 363 mg/dL (70-110)
--- NOTE | 2020-04-22 20:39 | NUR.SHIFT ---
PAtient amiodarone not given per parameters. Patient heartrate 51 or 52 bpm on telemetry at time of adminstration. Sinus bradycardia.
--- NOTE | 2020-04-22 21:23 | PC.NURSE ---
Notifed Dr. Godfrey about holding PM dose of Amiodarone due to parameters. NO orders received.
[2020-04-23 03:54] VITALS: BP 125/62; PULSE 59; RESP 22; TEMP 36.8; O2SAT 96
[2020-04-23 05:04] LABS: Basophils # 0.1 10^3/uL (0.0-0.1); Basophils % 1.3 %; Eosinophils # 0.1 10^3/uL (0.0-0.8); Eosinophils % 1.5 %; Hematocrit 36.6 % (37.0-47.0); Hemoglobin 11.5 g/dL (11.5-15.3); Lymphocytes # 2.1 10^3/uL (0.8-4.8); Lymphocytes % 26.5 %; Mean Corpuscular HGB Conc 31.4 g/dL (30.0-36.0); Mean Corpuscular Volume 89.3 fL (81-99); Mean Platelet Volume 10.7 fL (7.4-10.4); Monocytes # 1.1 10^3/uL (0.2-0.9); Monocytes % 13.8 %; Neutrophils # 4.48 10^3/uL (1.8-7.7); Neutrophils % 56.5 %; Nucleated Red Blood Cells % 0 %; Platelet Count 206 10^3/cmm (130-400); Red Cell Distribution Width 15.8 % (12.1-15.1); White Blood Count 7.9 10^3/uL (4.0-10.0)
[2020-04-23 05:25] LABS: Alanine Aminotransferase 21 U/L (0-33); Alkaline Phosphatase 53 IU/L (35-105); Aspartate Amino Transferase 16 U/L (0-32); Blood Urea Nitrogen 19 mg/dL (8-23); Calcium 8.2 mg/dL (8.5-10.5); Carbon Dioxide 26 mmol/L (22-29); Chloride 105 mmol/L (98-107); Creatinine Clr Calc Pharmacy 47.8348; Globulin 2.7 g/dL (1.3-4.6); Glucose 160 mg/dL (65-115); Osmolality Calculated 296 mOsm/kg (285-295); Sodium 140 mmol/L (136-145); Total Bilirubin 0.3 mg/dL (0.15-1.2); Total Protein 5.7 g/dL (6.6-8.7)
[2020-04-23 06:42] LABS: Glucose Point of Care 175 mg/dL (70-110)
[2020-04-23 07:05] VITALS: BP 136/65; PULSE 58; RESP 20; TEMP 36.7; O2SAT 95
--- NOTE | 2020-04-23 08:25 | PC.NURSE ---
Dr. Felix notified that patient HR is sinus shun 50-60s. Telephone order received to administer 400 mg of amiodarone, hold 12.5 mg of metoprolol. RBTO. Nurse to continue to monitor.
--- NOTE | 2020-04-23 08:35 | P.PN_ITS ---
Subjective Subjective: Interval history: She feels well post cardioversion. Remained in SR/SB overnight. Medications: Reviewed: Yes Medication Review Details: Current Medications Acetaminophen (Acetaminophen 325 Mg Tablet) 650 mg PO Q6H PRN PRN Reason: MILD PAIN Last Admin: 04/22/20 19:05 Dose: 650 mg Documented by: Amiodarone HCl (Amiodarone 200 Mg Tablet) 400 mg PO BID [facility] Atorvastatin Calcium (Atorvastatin 40 Mg Tablet) 20 mg PO DAILY [facility] Last Admin: 04/22/20 08:53 Dose: 20 mg Documented by: Dextrose (Dextrose 50% Syringe 50 Ml) 25 ml IVP ONCE PRN; Protocol PRN Reason: hypoglycemia protocol Dextrose (Dextrose 50% Syringe 50 Ml) 50 ml IVP PRN PRN; Protocol PRN Reason: hypoglycemia protocol Diltiazem HCl (Diltiazem 30 Mg Tablet) 30 mg PO TID PRN PRN Reason: tachycardia Last Admin: 04/22/20 04:39 Dose: 30 mg Documented by: Furosemide (Furosemide 20 Mg Tablet) 20 mg PO DAILY [facility] Last Admin: 04/22/20 08:53 Dose: 20 mg Documented by: Glucagon (Glucagon 1 Mg/Ml Inj 1 Ml) 1 mg IM ONCE PRN; Protocol PRN Reason: Adult Acute Hypoglycemia Prot. Dextrose (D5w) 500 mls @ 100 mls/hr IV ONCE PRN; Protocol PRN Reason: Adult Acute Hypoglycemia Prot Sodium Chloride (Sodium Chloride 0.9%) 1,000 mls @ 100 mls/hr IV .Q10H [facility] Last Admin: 04/23/20 01:22 Dose: Not Given Documented by: Insulin Aspart (Insulin Aspart 100 Unit/1 Ml) 0 unit SUBCUT WM&BEDTIME [facility]; Protocol Last Admin: 04/23/20 07:23 Dose: 4 unit Documented by: Insulin Glargine (Insulin Glargine 100 Units/1 Ml) 18 unit SUBCUT DAILY [facility] Last Admin: 04/22/20 08:51 Dose: 18 unit Documented by: Lisinopril (Lisinopril 10 Mg Tablet) 10 mg PO DAILY [facility] Last Admin: 04/22/20 18:30 Dose: 10 mg Documented by: Metoprolol Tartrate (Metoprolol Tartrate 25 Mg Tablet) 12.5 mg PO BID [facility] Last Admin: 04/22/20 18:29 Dose: 12.5 mg Documented by: Oxybutynin Chloride (Oxybutynin 5 Mg Tablet) 5 mg PO DAILY PRN PRN Reason: MUSCLE SPASMS Rivaroxaban (Rivaroxaban 10 Mg Tablet) 20 mg PO DAILY [facility] Last Admin: 04/22/20 08:52 Dose: 20 mg Documented by: Vitals/I&O/Wt Last Vital Signs Temp 98.0 F 04/23/20 07:05 Pulse 58 L 04/23/20 07:05 Resp 20 H 04/23/20 07:05 BP 136/65 04/23/20 07:05 Pulse Ox 95 04/23/20 07:05 04/22/20 04/23/20 04/23/20 22:59 06:59 14:59 Intake Total 360 / 660 360 / 360 Balance 360 / 660 360 / 360 Weight last 48 hrs Weight 170 lb Physical Exam Narrative: EXAM NARRATIVE: GENERAL: Averagely built and averagely nourished in no acute distress HEENT: Pupils equal round reactive to light. No pallor or icterus. NECK: central trachea, no JVD,. No carotid bruit. CARDIOVASCULAR SYSTEM: S1-S2 regular. No murmur rubs or gallops. RESPIRATORY SYSTEM: Chest clear to auscultation. No wheezes rhonchi or rubs heard. No use of accessory muscles. ABDOMEN: Soft, nontender and nondistended. Normal bowel sounds present. EXTREMITIES: No cyanosis or clubbing. No edema. No signs of chronic venous insufficiency. 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 No focal neurological deficits. SKIN: Normal turgor and temperature. No breakdown, or nail changes noted. PSYCH: Normal insight and judgment. Data : 04/23/20 04:39 04/23/20 04:39 A&P Assessment and plan (1) Atrial fibrillation: Paroxysmal atrial fibrillation with rapid medical response [id number]= 5/9 , one for hypertension, two for age, one for female sex and on e for congestive heart failure. -Records obtained from Dr. Post's office and reviewed. She has missed few dosages on DOAC recently. Patient underwent successful NIYAH/Cv with protestant of SR/SB. -Change to amiodarone 200 mg BID x 3 weeks on discharge and then 200 mg daily. -change to metoprolol tartrate 12.5 mg BID (Hold for HR < 60 bpm). -In case, she is tachycardic (HR > 100 bpm), may use metoprolol tartrate 25 mg BID PRN. -She would like to follow up with Dr. Post on discharge on 05/15/20. In case she needs to be seen sooner, she may see me in office. -BMP, Mg, BNP and EKG in 1 week with PCP. Status: Acute Qualifiers: Atrial fibrillation type: paroxysmal Qualified Code(s): I48.0 - Par oxysmal atrial fibrillation (2) New onset of congestive heart failure: Likely in setting of A. fib with RVR. -Continue low-dose Lasix on discharge Status: Acute (3) Hypertension: -continue lisinopril -Continue closely monitor blood pressure and heart rate and further changes based on that. 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 Please feel free to call with questions or concerns. Attestations Medical Necessity Statement*: Stable from cardiac standpoint to be discharged. Time Spent in Patient Care: 16 - 35 minutes (>than 50% of time spent in counselling and/or direct pt care on unit) . Coding Level of Care Code Acute Raspberry Checker for [facility] Fwd Diagnoses Atrial fibrillation I48.0 Atrial fibrillation type: paroxysmal New onset of congestive heart failure I50.9 Hypertension I10 Hypertension type: essential hypertension Diabetes mellitus E11.22; N18.2; Z79.4 Chronic kidney disease stage: stage 2 (mild) Diabetes mellitus complication detail: with chronic kidney disease Diabetes mellitus complication status: with kidney complications Diabetes mellitus medical terminologist insulin use: with mcc use Diabetes mellitus type: type 2
[2020-04-23] MEDS: amiodarone 200 mg Tablet 400 MG PO (08:38)
[2020-04-23] MEDS: lisinopril 10 mg Tablet PO (08:39)
[2020-04-23] MEDS: atorvastatin 40 mg Tablet 20 MG PO (08:39)
[2020-04-23] MEDS: FUROsemide 20 mg Tablet PO (08:41)
[2020-04-23] MEDS: rivaroxaban 10 mg Tablet 20 MG PO (08:41)
[2020-04-23] MEDS: insulin glargine 100 units/1 mL 18 UNIT SUBCUT (08:44)
[2020-04-23 10:47] VITALS: BP 147/68; PULSE 67; RESP 16; TEMP 36.4; O2SAT 95
--- NOTE | 2020-04-23 11:08 | DCPLANNER ---
IMM completed on 04/23/2020 @ 1020. Copy of rights given to pt.
--- NOTE | 2020-04-23 11:13 | ANE.PACU2 ---
Inpatient post-anesthesia follow up: Airway intact: Yes Vital signs: Temperature 97.6 F Pulse Rate [Monito r] 147 Pulse Rate 67 Respiratory Rate 16 Blood Pressure [Ri ght Arm] 162/117 Blood Pressure 147/68 Pulse Oximetry 95 Oxygen Delivery Me thod Room Air Oxygen Flow Rate Fraction of Inspir ed Oxygen Hydration adequate: Yes Nausea and vomiting: No Pain level: 1 Mental status: Baseline
[2020-04-23 11:25] LABS: Glucose Point of Care 255 mg/dL (70-110)
--- NOTE | 2020-04-23 12:24 | P.DS_ITS ---
Discharge Providers Date of Admission: 04/18/20 19:20 Date of Discharge: April 23, 2020 Attending Provider at Admission: Demetrio Godfrey MD Attending Provider at Discharge: Omar Desir Primary Care Provider: Hunter Pavon Jr, MD Diagnoses at Discharge Discharge Diagnosis (1) Atrial fibrillation: Status: Acute Qualifiers: Atrial fibrillation type: paroxysmal Qualified Code(s): I48.0 - Paroxysmal atrial fibrillation (2) New onset of congestive heart failure: Status: Acute (3) Hypertension: Status: Chronic Qualifiers: Hypertension type: essential hypertension Qualified Code(s): I10 - Essential (primary) hypertension (4) Diabetes mellitus: Status: Chronic Qualifiers: Diabetes mellitus type: type 2 Diabetes mellitus termination clerk insulin use: with group home use Diabetes mellitus complication status: with kidney complications Diabetes mellitus complication detail: with chronic kidney disease Chronic kidney disease stage: stage 2 (mild) Qualified Code(s): E11.22 - Type 2 diabetes mellitus with diabetic chronic kidney disease; N18.2 - Chronic kidney disease, stage 2 (mild); Z79.4 - [facility] (current) use of insulin Reason for Visit Reason for Visit: AFIB WITH RVR Hospital Course Hospital Course 79-year-old lady with history of atrial fibrillation, treated with digoxin, m etoprolol, Xarelto, cardioversion status post cardioversion on Monday the week before, came in with symptomatic atrial fibrillation with RVR, pain between shoulder blades. With no indication of acute IA. Initially was continued on digoxin, metoprolol and had Cardizem drip started. Heart rates did improve, however, did not convert to sinus. Cardiology was consulted. She was started on amiodarone in attempted chemical cardioversion. She was continued on Xarelto. This was not successful, and on 04/22 she underwent NIYAH DC cardioversion. Currently remains in sinus rhythm. Feels well after the procedure. On discharge per recommendation by horse race starter continue amiodarone 200 mg twice a day for 3 weeks, then switch to 200 mg daily, metoprolol dose was decreased to 12.5 mg twice daily as her heart rates are in the 60s. May take metoprolol 25 mg twice daily as needed in case of persistent tachycardia more than 100 bpm. For hypertension is on lisinopril 10 mg. See complete notes, consultation and imaging studies for details. Do not hesitate to call with any questions. Physical Exam Const: COMMON NORMALS: no acute distress and patient oriented x3 HENMT: COMMON NORMALS: oropharynx normal Neck/C-Spine: COMMON NORMALS: no JVD Resp: COMMON NORMALS: normal respiratory effort and clear to auscultation bilaterally AUSCULTATION: clear to auscultation bilaterally Cardio: COMMON NORMALS: no JVD, regular rhythm, S1 normal heart sound present, S2 normal heart sound present and No murmurs present (Cardio) RHYTHM: regular rhythm HEART SOUNDS: S1 normal heart sound present and S2 normal heart sound present GI: COMMON NORMALS: Normal to inspection, nondistended, normoactive bowel sounds present, Soft to palpation and non-tender PALPATION: Yes Soft to palpation Extremity: COMMON NORMALS: no joint enlargement and no pedal edema Neuro: COMMON NORMALS: patient oriented x3 and moves all extremities Skin: COMMON NORMALS: no rashes or lesions noted GENERAL SKIN EXAM: no rashes or lesions noted Discharge Data Data Completed and Pending: Completed Studies During Hospitalization Category Date Time Status XR chest 1V juan miguel ble [id number] Stat Exams 04/18/20 15:50 Completed CV echo complete* [id number] Routine Ultrasound 04/19/20 21:22 Completed CV echo transesop hageal [id number] Routi ne Ultrasound 04/22/20 17:34 Completed Labs from last 24 hours 04/23/20 04/23/20 04/23/20 10:49 06:28 04:39 WBC RBC Hgb Hct MCV MCH MCHC RDW Plt Count MPV Neut % (Auto) Lymph % (Auto) [place] % (Auto) Eos % (Auto) Baso % (Auto) Neut # (Auto) Lymph # (Auto) [place] # (Auto) Eos # (Auto) Baso # (Auto) Nucleated RBC % (a uto) Nucleated RBCs # Sodium 140 Potassium 4.0 Chloride 105 Carbon Dioxide 26 Anion Gap 13.0 BUN 19 Creatinine 1.0 H GFR Calculation Not Reportable Glucose 160 H POC Glucose 255 175 Calculated Osmolal ity 296 H Calcium 8.2 L Total Bilirubin 0.3 AST 16 ALT 21 Alkaline Phosphata se 53 Troponin T Baselin e Troponin T 120 Min [place] Delta Troponin T Troponin T Hi Sens 6Hr Troponin T Hi Sens 6Hr Delta Total Protein 5.7 L Albumin 3.0 L Globulin 2.7 SARS-CoV-2 Ag (Rap id) 04/23/20 04/22/20 04/22/20 04:39 19:44 18:05 WBC 7.9 RBC 4.10 Hgb 11.5 Hct 36.6 L MCV 89.3 MCH 28.0 MCHC 31.4 RDW 15.8 H Plt Count 206 MPV 10.7 H Neut % (Auto) 56.5 Lymph % (Auto) 26.5 [place] % (Auto) 13.8 Eos % (Auto) 1.5 Baso % (Auto) 1.3 Neut # (Auto) 4.48 Lymph # (Auto) 2.1 [place] # (Auto) 1.1 H Eos # (Auto) 0.1 Baso # (Auto) 0.1 Nucleated RBC % (a uto) 0 Nucleated RBCs # 0.0 Sodium Potassium Chloride Carbon Dioxide Anion Gap BUN Creatinine GFR Calculation Glucose POC Glucose 363 Calculated Osmolal ity Calcium Total Bilirubin AST ALT Alkaline Phosphata se Troponin T Baselin e Troponin T 120 Min [place] Delta Troponin T Troponin T Hi Sens 6Hr 34.36 H Troponin T Hi Sens 6Hr Delta -2.64 L Total Protein Albumin Globulin SARS-CoV-2 Ag (Rap id) 04/22/20 04/22/20 04/22/20 16:07 14:20 12:22 WBC RBC Hgb Hct MCV MCH MCHC RDW Plt Count MPV Neut % (Auto) Lymph % (Auto) [place] % (Auto) Eos % (Auto) Baso % (Auto) Neut # (Auto) Lymph # (Auto) [place] # (Auto) Eos # (Auto) Baso # (Auto) Nucleated RBC % (a uto) Nucleated RBCs # Sodium Potassium Chloride Carbon Dioxide Anion Gap BUN Creatinine GFR Calculation Glucose POC Glucose 198 Calculated Osmolal ity Calcium Total Bilirubin AST ALT Alkaline Phosphata se Troponin T Baselin e 37 H Troponin T 120 Min [place] 34.74 H Delta Troponin T -2.26 L Troponin T Hi Sens 6Hr Troponin T Hi Sens 6Hr Delta Total Protein Albumin Globulin SARS-CoV-2 Ag (Rap id) 04/22/20 11:00 WBC RBC Hgb Hct MCV MCH MCHC RDW Plt Count MPV Neut % (Auto) Lymph % (Auto) [place] % (Auto) Eos % (Auto) Baso % (Auto) Neut # (Auto) Lymph # (Auto) [place] # (Auto) Eos # (Auto) Baso # (Auto) Nucleated RBC % (a uto) Nucleated RBCs # Sodium Potassium Chloride Carbon Dioxide Anion Gap BUN Creatinine GFR Calculation Glucose POC Glucose Calculated Osmolal ity Calcium Total Bilirubin AST ALT Alkaline Phosphata se Troponin T Baselin e Troponin T 120 Min [place] Delta Troponin T Troponin T Hi Sens 6Hr Troponin T Hi Sens 6Hr Delta Total Protein Albumin Globulin SARS-CoV-2 Ag (Rap id) Negative Vitals: Last Vital Signs Temp 97.6 F 04/23/20 10:47 Pulse 67 04/23/20 10:47 Resp 16 04/23/20 10:47 BP 147/68 04/23/20 10:47 Pulse Ox 95 04/23/20 10:47 Discharge Plan Discharge Patient Disposition: Home Condition: Stable Prescriptions: New furosemide 20 mg Tablet 20 mg PO DAILY Qty: 30 RF: 0 metoprolol tartrate 25 mg Tablet 12.5 mg PO BID Qty: 30 RF: 0 amiodarone 200 mg tablet See Rx Instructions .ROUTE .COMPLEX Qty: 50 RF: 0 Continued Lantus U-100 Insulin 100 unit/mL solution 18 unit SUBCUT BID RF: 0 simvastatin 20 mg tablet 20 mg PO DAILY RF: 0 metformin 1,000 mg tablet 1,000 mg PO BID RF: 0 Xarelto 20 mg tablet 20 mg PO DAILY RF: 0 oxybutynin chloride 5 mg tablet 5 mg PO DAILY PRN (Reason: MUSCLE SPASMS) RF: 0 Changed lisinopril 5 mg tablet 10 mg PO DAILY Qty: 30 RF: 0 Discontinued metoprolol succinate 100 mg tablet extended release 24 hr 100 mg PO DAILY RF: 0 digoxin 250 mcg (0.25 mg) tablet 250 mcg PO DAILY RF: 0 Discharge Orders: Discharge Order (Routine); Ordered 04/23/20 Ordered By: Omar Desir Referrals: Bg Post MD [Referring] - 05/15/20 Hunter Pavon Jr, MD [Primary Care Provider] - 1 week (A. fib with RVR, check BMP, magnesium, BNP, EKG.) Discharge Diet: Cardiac and Diabetic Discharge Activity: Increase activity as tolerated Patient Instructions: Metoprolol (By mouth), Furosemide (By mouth), Amiodarone (By mouth), Transesophageal Echocardiogram (DC) Activity Restrictions/Additional Instructions: Please take amiodarone 200 mg 2 times a day for 3 weeks, then change to 200 mg daily. Your metoprolol dose was changed to 25 mg twice daily. Hold for heart rate less than 60. In case heart rate is high (more than 100 bpm), use metoprolol tartrate 25 mg twice a day as needed. Monitor your heart rate, blood pressure at least 3 times daily. Go to ER in case of any persistently high heart rate not responsive to medication, severe chest pain, or other concerning symptoms. 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
[2020-04-23 14:00] VITALS: BP 164/75; PULSE 74; RESP 19; O2SAT 97
== END 2020-04-23 15:05 | disposition home or self-care (01) | DRG 308 ==
LOC: ER 19:21 → CSU 19:32
PROVIDERS: Family Medicine; Internal Medicine Cardiovascular Disease; Admitting Provider Internal Medicine; Emergency Provider Emergency Medicine; PCP Family Medicine; Visit Provider Internal Medicine
DX: I48.91 Unspecified atrial fibrillation (principal); I50.31 Acute diastolic (congestive) heart failure; I13.0 Hypertensive heart and chronic kidney disease with heart failure and stage 1 through stage 4 chronic kidney disease, or unspecified chronic kidney disease; Z79.01 Long term (current) use of anticoagulants; I25.2 Old myocardial infarction; E11.22 Type 2 diabetes mellitus with diabetic chronic kidney disease; N18.2 Chronic kidney disease, stage 2 (mild); R32 Unspecified urinary incontinence; E78.5 Hyperlipidemia, unspecified; I08.1 Rheumatic disorders of both mitral and tricuspid valves; I27.20 Pulmonary hypertension, unspecified; Z79.4 Long term (current) use of insulin
CPT/HCPCS: 12345; 36415; 36416; 71045; 80048; 80053; 80162; 81003; 82962; 83036; 83735; 83880; 84443; 84484; 85025; 85378; 85610; 87426; 93005; 93306; 93312; 93320; 93325; 96372; 99282; J1815 ×2; J3475; J3490; J7030

== ENCOUNTER 2020-05-07 10:07 | Inpatient (IN) | payer MEDICARE, OTHER, SELFPAY ==
[2020-05-07 10:09] VITALS: BP 158/75; PULSE 79; RESP 18; TEMP 36.8; O2SAT 98; BMI 23.2
--- NOTE | 2020-05-07 10:20 | ED_ITS ---
HPI - Recheck/Abnormal Lab/Rx General: Chief Complaint: Recheck/Abnormal Lab/Rx Stated Complaint: RENAL FAILURE Time Seen by Provider: 05/07/20 10:09 Source: patient Mode of arrival: ambulatory Limitations: no limitations History of Present Illness: HPI narrative: 79-year-old female who states she has had diarrhea over the last week. She states she had lab draw yesterday by [facility] and then got a call the day that her creatinine was over 3 and she is in renal failure. She states she still been able to make urine. She is just felt fine besides a diarrhea. She had some weakness. Patient called EMS as she is concerned about her kidneys. She denies any cough or fever. Review of Systems Const: Denies: fever(s), chills, body aches or change in appetite Eyes: Denies: blurry vision or eye discomfort ENMT: Denies: throat pain or dental pain Card: Denies: chest pain Resp: Denies: dyspnea GI: Reports: diarrhea : Denies: dysuria Musc: Denies: neck pain or back pain Skin/Breast: Denies: rash Neuro: Denies: headache(s) Psych: Denies: depression Win/Lymph: Denies: easy bruising All/Imm: Denies: urticaria PFSH ED PFSH: Medical History Atrial fibrillation Diabetes mellitus History of cardioversion Hypertension New onset of congestive heart failure Urinary incontinence Surgical History No pertinent past surgical history Family History Other Family history non-contributory Social History Smoking and tobacco status: never smoked Alcohol intake: never Lives independently: Yes Housing: House Physical Exam Const: COMMON NORMALS: no acute distress, patient oriented x3 and healthy appearing HENMT: COMMON NORMALS: normocephalic and atraumatic HEAD & SCALP: normocephalic and atraumatic Eye: COMMON NORMALS: Equal, round and reactive pupils present and EOMs intact bilaterally PUPIL: Yes Equal, round and reactive pupils present Neck/C-Spine: COMMON NORMALS: full ROM and supple Chest: COMMONS NORMALS: normal inspection of the chest and normal palpation of entire chest wall Resp: COMMON NORMALS: normal respiratory effort, No retractions, No use of accessory muscles and clear to auscultation bilaterally AUSCULTATION: clear to auscultation bilaterally Cardio: COMMON NORMALS: regular rate, regular rhythm and No murmurs present (Cardio) RATE: regular rate RHYTHM: regular rhythm GI: COMMON NORMALS: Normal to inspection, nondistended, normoactive bowel sounds present, Soft to palpation, non-tender and no masses PALPATION: Yes Soft to palpation Extremity: COMMON NORMALS: normal to inspection and full ROM Neuro: COMMON NORMALS: patient oriented x3, moves all extremities and no focal motor deficits Psych: COMMON NORMALS: mental status grossly normal, Normal thought process present and cooperative THOUGHT PROCESS: Normal thought process present Skin: COMMON NORMALS: no rashes or lesions noted and no wounds GENERAL SKIN EXAM: no rashes or lesions noted Course Vital Signs: Vital signs: Vital Signs Temperature 98.2 F 05/07/20 10:09 Pulse Rate 79 05/07/20 10:09 Respiratory Rate 18 05/07/20 10:09 Blood Pressure 158/75 05/07/20 10:09 Pulse Oximetry 98 05/07/20 10:09 MDM - Recheck/Abnormal Lab/Rx MDM Narrative: Medical decision making narrative: Patient presents with acute kidney injury along with diarrhea. I believe her kidney injury is likely due to combination of being on Lasix along with dehydration. We will give IV fluids and I spoke to hospitalist and will admit. Patient is otherwise well-appearing here. Lab Data: Labs: Lab Results 05/07/20 05/07/20 Range/Units 10:25 10:25 WBC 7.9 (4.0-10.0) 10^3/ uL RBC 4.75 (4.1-5.3) 10^6/u L Hgb 13.4 (11.5-15.3) g/dL Hct 41.5 (37.0-47.0) % MCV 87.4 (81-99) fL MCH 28.2 (28.0-34.0) pg MCHC 32.3 (30.0-36.0) g/dL RDW 15.6 H (12.1-15.1) % Plt Count 248 (130-400) 10^3/c mm MPV 11.1 H (7.4-10.4) fL Neut % (Auto) 69.3 % Lymph % (Auto) 22.4 % [place] % (Auto) 6.3 % Eos % (Auto) 0.3 % Baso % (Auto) 1.3 % Neut # (Auto) 5.47 (1.8-7.7) 10^3/u L Lymph # (Auto) 1.8 (0.8-4.8) 10^3/u L [place] # (Auto) 0.5 (0.2-0.9) 10^3/u L Eos # (Auto) 0.0 (0.0-0.8) 10^3/u L Baso # (Auto) 0.1 (0.0-0.1) 10^3/u L Nucleated RBC % (a uto) 0 % Nucleated RBCs # 0.0 /100WBC Sodium 137 (136-145) mmol/L Potassium 4.6 (3.5-5.1) mmol/L Chloride 98 (98-107) mmol/L Carbon Dioxide 23 (22-29) mmol/L Anion Gap 20.6 H (5-19) BUN 65 H (8-23) mg/dL Creatinine 3.3 H (0.5-0.9) mg/dL GFR Calculation Not Reportable Glucose 59 L (65-115) mg/dL Calculated Osmolal ity 300 H (285-295) mOsm/k g Calcium 9.3 (8.5-10.5) mg/dL Total Bilirubin 0.4 (0.15-1.2) mg/dL AST 30 (0-32) U/L ALT 27 (0-33) U/L Alkaline Phosphata se 66 (35-105) IU/L Total Protein 7.2 (6.6-8.7) g/dL Albumin 3.9 (3.5-5.2) g/dL Globulin 3.3 (1.3-4.6) g/dL Discharge Plan Discharge Patient Disposition: Admitted As Inpatient Clinical Impression: Acute kidney injury, Diarrhea Condition: Stable Coding Level of Care Code ED Adhesive Bandage Making Operator for g Fwd Exam Comprehensive
[2020-05-07 10:39] LABS: Basophils # 0.1 10^3/uL (0.0-0.1); Basophils % 1.3 %; Eosinophils % 0.3 %; Hematocrit 41.5 % (37.0-47.0); Hemoglobin 13.4 g/dL (11.5-15.3); Lymphocytes # 1.8 10^3/uL (0.8-4.8); Lymphocytes % 22.4 %; Mean Corpuscular HGB Conc 32.3 g/dL (30.0-36.0); Mean Corpuscular Hemoglobin 28.2 pg (28.0-34.0); Mean Corpuscular Volume 87.4 fL (81-99); Mean Platelet Volume 11.1 fL (7.4-10.4); Monocytes # 0.5 10^3/uL (0.2-0.9); Monocytes % 6.3 %; Neutrophils # 5.47 10^3/uL (1.8-7.7); Neutrophils % 69.3 %; Nucleated Red Blood Cells % 0 %; Platelet Count 248 10^3/cmm (130-400); Red Blood Count 4.75 10^6/uL (4.1-5.3); Red Cell Distribution Width 15.6 % (12.1-15.1); White Blood Count 7.9 10^3/uL (4.0-10.0)
[2020-05-07 10:55] LABS: Alanine Aminotransferase 27 U/L (0-33); Albumin Level 3.9 g/dL (3.5-5.2); Alkaline Phosphatase 66 IU/L (35-105); Anion Gap 20.6 (5-19); Aspartate Amino Transferase 30 U/L (0-32); Blood Urea Nitrogen 65 mg/dL (8-23); Calcium 9.3 mg/dL (8.5-10.5); Carbon Dioxide 23 mmol/L (22-29); Chloride 98 mmol/L (98-107); Globulin 3.3 g/dL (1.3-4.6); Glucose 59 mg/dL (65-115); Osmolality Calculated 300 mOsm/kg (285-295); Potassium 4.6 mmol/L (3.5-5.1); Sodium 137 mmol/L (136-145); Total Bilirubin 0.4 mg/dL (0.15-1.2); Total Protein 7.2 g/dL (6.6-8.7)
[2020-05-07 11:31] LABS: INR 1.83 (0.8-1.2)
[2020-05-07 11:37] LABS: Creatine Phosphokinase 93 U/L (26-192)
[2020-05-07 11:49] LABS: Add Urine Microscopic? YES; Bilirubin Urine Neg (Negative); Blood Urine Trace (Negative); Glucose Urine UA Norm (Normal); Ketones Urine 1+ (Negative); Leukocyte Esterase Urine 2+ (Negative); Nitrate Urine Negative (Negative); Protein Urine Neg (Negative); Urine Appearance SL Hazy (CLEAR); Urine Color Yellow (Yellow); Urobilinogen Urine Norm (Negative); pH Urine 5 (5-7)
[2020-05-07 11:51] LABS: Add Urine Culture? Yes; Bacteria Urine 3+ /hpf; Squamous Epithelial Cell Urine 0-4 /hpf (0-5); WBC Urine 15-25 /hpf (0-5)
[2020-05-07] MEDS: cefTRIAXone 1,000 MG in sodium chloride 0.9% (plus) 50 ML 100 MG IV (12:29)
[2020-05-07 12:48] VITALS: BP 147/68; PULSE 68; RESP 20; O2SAT 98
--- NOTE | 2020-05-07 12:55 | PM.HP ---
Providers/Chief Complaint Admitting Physician: Kuldip Griffin MD Primary Care Provider: Hunter Pavon Jr, MD Chief Complaint: RENAL FAILURE History of Present Illness Sariah Yip is a 79 year old female presenting with Medications/Allergies Home Medications Medication Instructions Recorded Confirmed Last Taken Type Lantus U-100 Insulin 18 unit SUBCUT BID@04/18/20 05/07/20 05/06/20 History Xarelto 20 mg PO DAILY@04/18/20 05/07/20 05/06/20 History metformin 1,000 mg PO BID@04/18/20 05/07/20 05/06/20 History simvastatin 20 mg PO HS@04/18/20 05/07/20 05/06/20 History amiodarone 200 mg PO DAILY@05/07/20 05/07/20 05/06/20 History furosemide 20 mg PO DAILY@05/07/20 05/07/20 Unknown History lisinopril 5 mg PO DAILY@05/07/20 05/07/20 05/06/20 History metoprolol tartrate 12.5 mg PO DAILY@05/07/20 05/07/20 05/06/20 History ondansetron HCl [Zofran] 4 mg PO Q6H PRN 05/07/20 05/07/20 05/06/20 History Allergies Allergy/AdvReac Type Severity Reaction Status Date / Time propoxyphene [From Darvon] Allergy ADR-Itching Verified 04/18/20 16:06 PFSH Acute PFSH: Medical History Atrial fibrillation Diabetes mellitus History of cardioversion Hypertension New onset of congestive heart failure Urinary incontinence Surgical History No pertinent past surgical history Family History Other Family history non-contributory Social History Smoking and tobacco status: never smoked Alcohol intake: never Lives independently: Yes Housing: House Vitals/I&O/Wt Last Vital Signs Temp 98.2 F 12/03/20 10:09 Pulse 68 05/07/20 12:48 Resp 20 H 05/07/20 12:48 BP 147/68 05/07/20 12:48 Pulse Ox 98 05/07/20 12:48 Weight last 48 hrs Weight 66.224 kg Data : 05/07/20 10:25 05/07/20 10:25 Coding Level of Care Code 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
--- NOTE | 2020-05-07 12:59 | PM.HP ---
Providers/Chief Complaint Admitting Physician: Kuldip Griffin MD Primary Care Provider: Hunter Pavon Jr, MD Chief Complaint: RENAL FAILURE History of Present Illness Sariah Ypi is a 79 year old female who was referred to the emergency department today secondary to abnormal lab at her primary care provider's office. Patient reports she has had some nausea, as well as some diarrhea for the last several weeks. She thinks it started about 2 days after her last discharge on April 13 when she was hospitalized for atrial fibrillation and got cardioverted at that time. She has had no fever. There is been no blood in her stool. She has had decreased p.o. intake. She denies any anti-inflammatory use. She believes she has been urinating normally. Last urination was this morning. She denies being short of breath. Review of Systems General: Reports: 10 or more systems reviewed and unremarkable except in HPI and below Const: Denies: fever(s) Eyes: Denies: change in vision ENMT: Denies: throat pain Card: Denies: chest pain Resp: Denies: dyspnea GI: Reports: nausea; Denies: abdominal pain, vomiting, hematochezia or melena : Denies: flank pain Musc: Reports: back pain; Denies: neck pain Skin/Breast: Denies: rash Neuro: Reports: headache(s) Psych: Denies: anxiety Endo: Denies: polyuria Win/Lymph: Denies: easy bruising All/Imm: Denies: urticaria Medications/Allergies Home Medications Medication Instructions Recorded Confirmed Last Taken Type Lantus U-100 Insulin 18 unit SUBCUT BID@04/18/20 05/07/20 05/06/20 History Xarelto 20 mg PO DAILY@04/18/20 05/07/20 05/06/20 History metformin 1,000 mg PO BID@04/18/20 05/07/20 05/06/20 History simvastatin 20 mg PO HS@04/18/20 05/07/20 05/06/20 History amiodarone 200 mg PO DAILY@05/07/20 05/07/20 05/06/20 History furosemide 20 mg PO DAILY@05/07/20 05/07/20 Unknown History lisinopril 5 mg PO DAILY@05/07/20 05/07/2020 History metoprolol tartrate 12.5 mg PO DAILY@08 05/07/20 05/07/20 05/06/20 History ondansetron HCl [Zofran] 4 mg PO Q6H PRN 05/07/20 05/07/20 05/06/20 History Allergies Allergy/AdvReac Type Severity Reaction Status Date / Time propoxyphene [From Darvon] Allergy ADR-Itching Verified 04/18/20 16:06 PFSH Acute PFSH: Medical History (Updated 05/07/20 @ 13:16 by Kuldip Griffin MD) Atrial fibrillation Chronic back pain Diabetes mellitus DJD (degenerative joint disease) History of cardioversion Hyperlipidemia Hypertension New onset of congestive heart failure Urinary incontinence Surgical History No pertinent past surgical history Family History (Updated 05/07/20 @ 13:06 by Kuldip Griffin MD) Other Cancer Family history non-contributory Social History Smoking and tobacco status: never smoked Alcohol intake: never Lives independently: Yes Housing: House Supplemental PFSH Information: Mother with history of colon cancer. Patient has not had colonoscopy. Vitals/I&O/Wt Last Vital Signs Temp 98.2 F 05/07/20 10:09 Pulse 68 05/07/20 12:48 Resp 20 H 05/07/20 12:48 BP 147/68 05/07/20 12:48 Pulse Ox 98 05/07/20 12:48 Weight last 48 hrs Weight 66.224 kg Physical Exam Narrative: EXAM NARRATIVE: General exam is a white female, conversant and in no apparent distress. HEENT: Pupils equally round. Oropharynx clear. Neck is supple no lymphadenopathy, thyromegaly. Cardiovascular regular rate and rhythm without murmur, no S3 or S4 Lungs are clear no wheezing or crackles Abdomen is soft, positive bowel sounds. No obvious organomegaly was deferred Extremities no cyanosis clubbing or edema, cap refill brisk Skin without rash Neuro no obvious focal deficits. Data : 05/07/20 10:25 05/07/20 10:25 Other data: INR 1.83 Liver function tests within normal limits Creatinine kinase 93 Urinalysis demonstrates 15-25 white cells, 0 red cells, negative nitrates, 3+ bacteria A&P Assessment and plan (1) Acute kidney injury: Avoid all anti-inflammatories, avoid renal toxic medication Hold diuretics and JOAN inhibitor's and Metformin currently Hydration Renal ultrasound with postvoid residual Close follow-up of renal function. Note that CK was checked, and normal indicating no evidence of rhabdomyolysis. check urine lytes, eosinophils, protein Status: Acute (2) Dehydration: Hydrate with IV fluids, saline at 100 cc an hour Status: Acute (3) Diarrhea: Check stool culture, C. difficile toxin Output As there is a component of nausea add Protonix 40 mg daily Status: Acute (4) UTI (urinary tract infection): Urine culture Rocephin 1 g IV every 24 hours Status: Acute Additional A&P Information History of paroxysmal atrial fibrillation. Currently appears to be in sinus rhythm. Last echocardiogram demonstrated preserved EF. Hypertension Hyperlipidemia Type 2 diabetes. Sliding scale insulin. Hold on Lantus currently secondary to renal failure Full code Heparin for DVT prophylaxis Attestations Medical Necessity Statement*: Will need less than 2 midnight stay for evaluation and treatment of acute kidney injury. Time Spent in Patient Care: Greater than 35 minutes Coding Level of Care Code Acute Certified First Assistant for [facility] Nic Diagnoses Acute kidney injury N17.9 Dehydration E86.0 Diarrhea R19.7 UTI (urinary tract infection) N39.0
--- NOTE | 2020-05-07 13:11 | US_ITS ---
WS: [id number] ULTRASOUND RENAL TECHNIQUE: Ultrasound examination of both kidneys. CLINICAL INFORMATION: renal failure COMPARISON: None. FINDINGS: RIGHT: Right kidney is normal in size and appearance. Echogenicity: Normal. Cortical thickness: 1.1 cm; Normal. Hydronephrosis: None. Perinephric fluid: None. Right kidney measures: 11.6 cm x 4.1 cm x 3.6 cm. LEFT: Left kidney is normal in size and appearance. Echogenicity: Normal. Cortical thickness: 1.5 cm; Normal. Hydronephrosis: None. Perinephric fluid: None. Left kidney measures: 10.2 cm x 4.9 cm x 4.9 cm. Normal visualized aorta. Post void bladder 154 cc. Patient emptied bladder 20 minutes prior to study. US/US renal BI with PV bladder IMPRESSION: 1. No hydronephrosis in either kidney. 2. Postvoid bladder volume 154 cc.
[2020-05-07 14:05] VITALS: PULSE 68; O2SAT 98
[2020-05-07] MEDS: sodium chloride 0.9% 1,000 ML 100 ML IV (15:31)
[2020-05-07 15:52] VITALS: BP 135/69; PULSE 69; RESP 18; TEMP 36.4; O2SAT 97
[2020-05-07] MEDS: acetaminophen 325 mg Tablet 650 MG PO (16:09)
[2020-05-07 17:18] LABS: Glucose Point of Care 159 mg/dL (70-110)
[2020-05-07 19:38] VITALS: BP 148/73; PULSE 68; RESP 18; TEMP 36.9; O2SAT 95
[2020-05-07 20:38] LABS: Glucose Point of Care 178 mg/dL (70-110)
[2020-05-07] MEDS: atorvastatin 40 mg Tablet 20 MG PO (21:04)
[2020-05-07] MEDS: rivaroxaban 10 mg Tablet 20 MG PO (21:04)
[2020-05-07 21:28] LABS: Eosinophil Urine No Eosinophils Seen; Urine Eosinophil Count 0 (0-0)
[2020-05-07 23:59] LABS: Potassium, Radom Urine 23 mmol/L; Urine Creatinine 107 mg/dL (28-217); Urine Protein Random 7 mg/dL; Urine Random Chloride 51 mmol/L; Urine Random Sodium 64 mmol/L
[2020-05-08] VITALS (8 sets, daily range): BP systolic 124–158; BP diastolic 50–73; PULSE 54–76; RESP 17–20; TEMP 36.6–36.8; O2SAT 93–97
[2020-05-08] MEDS: cefTRIAXone 1,000 MG in sodium chloride 0.9% (plus) 50 ML 100 MG IV (01:00)
[2020-05-08] MEDS: sodium chloride 0.9% 1,000 ML 100 ML IV ×3 (01:00→21:44)
[2020-05-08] MEDS: acetaminophen 325 mg Tablet 650 MG PO (05:26)
[2020-05-08 05:45] LABS: Basophils # 0.1 10^3/uL (0.0-0.1); Basophils % 1.3 %; Eosinophils # 0.1 10^3/uL (0.0-0.8); Eosinophils % 1.2 %; Hematocrit 35.9 % (37.0-47.0); Lymphocytes # 2.4 10^3/uL (0.8-4.8); Lymphocytes % 31.3 %; Mean Corpuscular HGB Conc 33.4 g/dL (30.0-36.0); Mean Corpuscular Hemoglobin 28.6 pg (28.0-34.0); Mean Corpuscular Volume 85.5 fL (81-99); Mean Platelet Volume 11.9 fL (7.4-10.4); Monocytes # 0.9 10^3/uL (0.2-0.9); Monocytes % 11.4 %; Neutrophils # 4.15 10^3/uL (1.8-7.7); Neutrophils % 54.4 %; Nucleated Red Blood Cells % 0 %; Platelet Count 220 10^3/cmm (130-400); Red Cell Distribution Width 15.4 % (12.1-15.1); White Blood Count 7.6 10^3/uL (4.0-10.0)
[2020-05-08 06:12] LABS: Alanine Aminotransferase 21 U/L (0-33); Albumin Level 3.4 g/dL (3.5-5.2); Alkaline Phosphatase 53 IU/L (35-105); Anion Gap 17.8 (5-19); Aspartate Amino Transferase 28 U/L (0-32); Blood Urea Nitrogen 47 mg/dL (8-23); Calcium 8.4 mg/dL (8.5-10.5); Carbon Dioxide 20 mmol/L (22-29); Chloride 106 mmol/L (98-107); Globulin 2.3 g/dL (1.3-4.6); Glucose 178 mg/dL (65-115); Magnesium 1.5 mg/dL (1.7-2.3); Osmolality Calculated 305 mOsm/kg (285-295); Potassium 4.8 mmol/L (3.5-5.1); Sodium 139 mmol/L (136-145); Total Bilirubin 0.3 mg/dL (0.15-1.2); Total Protein 5.7 g/dL (6.6-8.7)
[2020-05-08] MEDS: magnesium sulfate premix 2 GM/50 ML PIGGYBACK IV (06:53)
[2020-05-08 07:24] LABS: Glucose Point of Care 195 mg/dL (70-110)
[2020-05-08] MEDS: amiodarone 200 mg Tablet PO (08:35)
[2020-05-08] MEDS: pantoprazole DR 40 mg Tablet PO (08:35)
[2020-05-08] MEDS: metoprolol tartrate 25 mg Tablet 12.5 MG PO (08:35)
--- NOTE | 2020-05-08 09:40 | PC.CHAP ---
Pastoral Care Encounter/Spiritual Assessment Type of Contact [x] Declined window shade ring coverer visit [] Patient/Family/Request visit [] Outpatient visit [] Follow-up visit [] Physician referral [] Code/Alert [] Routine visit [] Staff referral [] Actively dying [] Patient sleeping [] Family support [] [] Out of room [] Palliative care [] [] Receiving care in room [] Pre-surgical visit [] Trauma [] Long length of stay [] ICU visit [] Other: Relational/Emotional Strength [] Patient feels connected with others/family/visitors/staff [] Distress [] Loneliness/isolation [] Abandonment Spirituality of Patient [] Person of Nichelle [] Attends Congregational of their Nichelle [] Believes in Prayer [] Reads Bible or Sabianism materials [] There are Spiritual issues to be addressed Ballast Inspector Interventions [] Prayer [] Active listening [] Non-anxious presence [] Spiritual/emotional support [] Crisis/trauma care [] Spiritual counseling [] Bereavement support [] Provided bereavement packet [] Provided Bible/devotional materials [] Provided toy/stuffed animal, coloring book to patient or family member [] Provided Communion [] Anointing/[place] [] Salvation [] Completed spiritual assessment [] Other: Impact on Illness or Injury [] Angry [] Fearful [] Anxious [] Often cries [] Exhaustion [] Unable to work [] Unable to attend buddhist [] Unable to walk/stand [] Unable to read [] Unable to drive [] Unable to eat/drink [] Unable to sleep [] Unable to be with family [] Patient intubated [] Other: Summary Time spent with patient
--- NOTE | 2020-05-08 10:12 | P.PN_ITS ---
Subjective Subjective: Interval history: Sariah reports she is doing okay this morning. She was little nauseous earlier. Medications: Reviewed: Yes Vitals/I&O/Wt Last Vital Signs Temp 97.8 F 05/08/20 07:57 Pulse 76 05/08/20 07:57 Resp 18 05/08/20 07:57 BP 158/71 05/08/20 07:57 Pulse Ox 95 05/08/20 07:57 05/07/20 05/08/20 05/08/20 22:59 06:59 14:59 Intake Total 360 / 360 1428.333 / 1788.333 240 / 240 Output Total 900 / 900 800 / 1700 Balance -540 / -540 628.333 / 88.333 240 / 240 Weight last 48 hrs Weight 66.224 kg Physical Exam Narrative: EXAM NARRATIVE: General exam is a white female, conversant and in no apparent distress. Cardiovascular regular rate and rhythm without murmur, no S3 or S4 Lungs are clear no wheezing or crackles Abdomen is soft, positive bowel sounds. No obvious organomegaly Extremities no cyanosis clubbing or edema, cap refill brisk Data : 05/08/20 04:38 05/08/20 04:38 Micro: Microbiology 05/07/20 11:00 Urine Culture - Preliminary Urine,Clean Catch Gram Negative Rods A&P Assessment and plan (1) Acute kidney injury: Avoid all anti-inflammatories, avoid renal toxic medication Hold diuretics and JOAN inhibitor's and Metformin currently Continue hydration Renal ultrasound with postvoid residual reviewed and no significant abnormality Renal function is slowly improving Note that CK was checked, and normal indicating no evidence of rhabdomyolysis. Urine negative for eosinophils Supplement hypomagnesemia Status: Acute (2) Dehydration: Resolved Status: Acute (3) Diarrhea: Check stool culture, C. difficile toxin No further diarrhea has been noted. Continue Protonix Status: Acute (4) UTI (urinary tract infection): Await urine culture. If this is growing a gram-negative kristin. Continue Rocephin 1 g IV every 24 hours Status: Acute Additional A&P Information History of paroxysmal atrial fibrillation. Currently appears to be in sinus rhythm. Last echocardiogram demonstrated preserved EF. Heart rate is controlled currently Hypertension Hyperlipidemia Type 2 diabetes. Sliding scale insulin. Hold on Lantus currently secondary to renal failure Full code Xarelto will suffice for DVT prophylaxis 05/08 renal function is improving, but needs further monitoring. Urine culture growing gram-negative kristin. Continue Rocephin. Suspect she can be discharged tomorrow. Attestations Medical Necessity Statement*: Needs continued hospitalization for close follow-up of renal failure Coding Level of Care Code Acute Sign Erector And Repairer for g Fwd Diagnoses Acute kidney injury N17.9 Dehydration E86.0 Diarrhea R19.7 UTI (urinary tract infection) N39.0
[2020-05-08 10:51] LABS: Glucose Point of Care 207 mg/dL (70-110)
[2020-05-08 17:20] LABS: Glucose Point of Care 172 mg/dL (70-110)
[2020-05-08] MEDS: atorvastatin 40 mg Tablet 20 MG PO (21:04)
[2020-05-08] MEDS: rivaroxaban 10 mg Tablet 20 MG PO (21:05)
[2020-05-08 21:15] LABS: Glucose Point of Care 195 mg/dL (70-110)
[2020-05-09] VITALS: BP 145/78; PULSE 71; RESP 19; TEMP 36.6; O2SAT 94
[2020-05-09] MEDS: cefTRIAXone 1,000 MG in sodium chloride 0.9% (plus) 50 ML 100 MG IV (00:50)
[2020-05-09 04:00] VITALS: BP 143/76; PULSE 65; RESP 18; TEMP 36.6; O2SAT 96
[2020-05-09 05:02] LABS: Basophils # 0.1 10^3/uL (0.0-0.1); Basophils % 1.9 %; Eosinophils # 0.1 10^3/uL (0.0-0.8); Eosinophils % 1.6 %; Hematocrit 36.3 % (37.0-47.0); Hemoglobin 11.6 g/dL (11.5-15.3); Lymphocytes # 1.8 10^3/uL (0.8-4.8); Lymphocytes % 27.9 %; Mean Corpuscular Hemoglobin 28.1 pg (28.0-34.0); Mean Corpuscular Volume 87.9 fL (81-99); Mean Platelet Volume 11.8 fL (7.4-10.4); Monocytes # 0.7 10^3/uL (0.2-0.9); Monocytes % 11.2 %; Neutrophils # 3.66 10^3/uL (1.8-7.7); Neutrophils % 57.1 %; Nucleated Red Blood Cells % 0 %; Platelet Count 200 10^3/cmm (130-400); Red Blood Count 4.13 10^6/uL (4.1-5.3); Red Cell Distribution Width 15.5 % (12.1-15.1); White Blood Count 6.4 10^3/uL (4.0-10.0)
[2020-05-09 05:36] LABS: Albumin Level 2.9 g/dL (3.5-5.2); Alkaline Phosphatase 48 IU/L (35-105); Blood Urea Nitrogen 25 mg/dL (8-23); Calcium 7.8 mg/dL (8.5-10.5); Carbon Dioxide 19 mmol/L (22-29); Chloride 110 mmol/L (98-107); Globulin 2.7 g/dL (1.3-4.6); Glucose 187 mg/dL (65-115); Magnesium 1.7 mg/dL (1.7-2.3); Osmolality Calculated 297 mOsm/kg (285-295); Sodium 139 mmol/L (136-145); Total Bilirubin 0.3 mg/dL (0.15-1.2); Total Protein 5.6 g/dL (6.6-8.7)
[2020-05-09 06:02] LABS: Alanine Aminotransferase 23 U/L (0-33); Anion Gap 14.9 (5-19); Aspartate Amino Transferase 34 U/L (0-32); Potassium 4.9 mmol/L (3.5-5.1)
[2020-05-09 06:57] LABS: Glucose Point of Care 176 mg/dL (70-110)
[2020-05-09 08:00] VITALS: BP 172/62; PULSE 68; RESP 18; TEMP 36.3; O2SAT 98
[2020-05-09] MEDS: amiodarone 200 mg Tablet PO (08:19)
[2020-05-09] MEDS: pantoprazole DR 40 mg Tablet PO (08:19)
[2020-05-09] MEDS: metoprolol tartrate 25 mg Tablet 12.5 MG PO (08:19)
[2020-05-09 11:01] LABS: Glucose Point of Care 314 mg/dL (70-110)
--- NOTE | 2020-05-09 11:02 | PM.DCS ---
Discharge Providers Date of Admission: 05/08/20 17:45 Date of Discharge: May 09, 2020 Attending Provider at Admission: Kuldip Griffin MD Attending Provider at Discharge: Main Gonzalez MD Primary Care Provider: Hunter Pavon Jr, MD Diagnoses at Discharge Discharge Diagnosis (1) Acute kidney injury: Status: Acute (2) Dehydration: Status: Acute (3) Diarrhea: Status: Acute (4) UTI (urinary tract infection): Status: Acute Reason for Visit Reason for Visit: RENAL FAILURE Hospital Course Hospital Course This is a 79-year-old female with history of atrial fibrillation on anticoagulation who presented to the ER secondary to abnormal labs by her primary care. She reported that she had some nausea and diarrhea for several weeks. Patient was noted to have significantly abnormal creatinine. She reports that her urination was normal. She was admitted for acute kidney injury likely secondary to dehydration. She was also later diagnosed with a UTI. She started antibiotics. She is given IV fluids. Metformin as well as Lasix was held. Treated with sliding scale insulin. As her symptoms improved as well as her labs. She was discharged in stable condition. She was restarted on her Metformin. Her Lasix was held. She is recommended follow-up with her primary care in 1 week. It is also noted that her area had resolved. Slightly normal CK to rule out rhabdomyolysis. Physical Exam Const: COMMON NORMALS: no acute distress and alert ORIENTATION/CONSCIOUSNESS: Yes oriented to person, Yes oriented to place and Yes oriented to time Neck/C-Spine: COMMON NORMALS: no JVD Resp: COMMON NORMALS: normal respiratory effort and No retractions Cardio: COMMON NORMALS: no JVD and regular rate RATE: regular rate GI: COMMON NORMALS: Normal to inspection, nondistended, normoactive bowel sounds present and Soft to palpation PALPATION: Yes Soft to palpation and No Tenderness to palpation present (GI) Extremity: COMMON NORMALS: normal to inspection Neuro: SENSORIUM/ORIENTATION: Yes alert, Yes oriented to person, Yes oriented to place and Yes oriented to time Psych: COMMON NORMALS: mental status grossly normal and Normal thought process present THOUGHT PROCESS: Normal thought process present Skin: COMMON NORMALS: no rashes or lesions noted and no wounds GENERAL SKIN EXAM: no rashes or lesions noted Discharge Data Data Completed and Pending: Completed Studies During Hospitalization Category Date Time Status US renal BI with PV bladder Routine Ultrasound 05/07/20 13:11 Completed Pending at discharge Category Date Time Status Clostridioides Di fficile PCR Routin e Lab 05/07/20 10:19 Uncollected Complete Blood Co unt w/Auto AM LABS Lab 05/10/20 04:00 Ordered Comprehensive Met abolic Panel AM LA BS Lab 05/10/20 04:00 Ordered Enteric Bacterial Panel by PCR Rout ine Lab 05/07/20 13:17 Uncollected Magnesium AM LABS Lab 05/10/20 04:00 Ordered Urine Culture Sta t Lab 05/07/20 11:00 Results Labs from last 24 hours 05/09/20 05/09/20 05/09/20 10:55 06:50 04:39 WBC RBC Hgb Hct MCV MCH MCHC RDW Plt Count MPV Neut % (Auto) Lymph % (Auto) Wetzel % (Auto) Eos % (Auto) Baso % (Auto) Neut # (Auto) Lymph # (Auto) Wetzel # (Auto) Eos # (Auto) Baso # (Auto) Nucleated RBC % (a uto) Nucleated RBCs # Sodium 139 Potassium 4.9 Chloride 110 H Carbon Dioxide 19 L Anion Gap 14.9 BUN 25 H Creatinine 1.6 H GFR Calculation Not Reportable Glucose 187 H POC Glucose 314 176 Calculated Osmolal ity 297 H Calcium 7.8 L Magnesium 1.7 Total Bilirubin 0.3 AST 34 H ALT 23 Alkaline Phosphata se 48 Total Protein 5.6 L Albumin 2.9 L Globulin 2.7 05/09/20 05/08/20 05/08/20 04:39 21:06 17:14 WBC 6.4 RBC 4.13 Hgb 11.6 Hct 36.3 L MCV 87.9 MCH 28.1 MCHC 32.0 RDW 15.5 H Plt Count 200 MPV 11.8 H Neut % (Auto) 57.1 Lymph % (Auto) 27.9 Wetzel % (Auto) 11.2 Eos % (Auto) 1.6 Baso % (Auto) 1.9 Neut # (Auto) 3.66 Lymph # (Auto) 1.8 Wetzel # (Auto) 0.7 Eos # (Auto) 0.1 Baso # (Auto) 0.1 Nucleated RBC % (a uto) 0 Nucleated RBCs # 0.0 Sodium Potassium Chloride Carbon Dioxide Anion Gap BUN Creatinine GFR Calculation Glucose POC Glucose 195 172 Calculated Osmolal ity Calcium Magnesium Total Bilirubin AST ALT Alkaline Phosphata se Total Protein Albumin Globulin Vitals: Last Vital Signs Temp 97.4 F L 05/09/20 08:00 Pulse 68 05/09/20 08:00 Resp 18 05/09/20 08:00 BP 172/62 05/09/20 08:00 Pulse Ox 98 05/09/20 08:00 Discharge Plan Discharge Patient Disposition: Home Condition: Stable Prescriptions: New cefdinir 300 mg capsule 300 mg PO Q12H 3 Days Qty: 6 RF: 0 Continued Lantus U-100 Insulin 100 unit/mL solution 18 unit SUBCUT BID@, RF: 0 simvastatin 20 mg tablet 20 mg PO HS@20 RF: 0 metformin 1,000 mg tablet 1,000 mg PO BID@ RF: 0 Xarelto 20 mg tablet 20 mg PO DAILY@20 RF: 0 Zofran 4 mg Tablet 4 mg PO Q6H PRN (Reason: Nausea) RF: 0 amiodarone 200 mg tablet 200 mg PO DAILY@08 RF: 0 lisinopril 5 mg tablet 5 mg PO DAILY@08 RF: 0 metoprolol tartrate 25 mg tablet 12.5 mg PO DAILY@08 RF: 0 Discontinued furosemide 20 mg tablet 20 mg PO DAILY@08 RF: 0 Discharge Orders: Discharge Order (Routine); Ordered 05/09/20 Ordered By: Main Gonzalez Referrals: Hunter Pavon Jr, MD [Primary Care Provider] - Discharge Diet: Cardiac and Diabetic Discharge Activity: Resume usual activity Patient Instructions: Diarrhea - Adult Discharge Attestations Time Spent in Discharge Care*: less than 30 min Quality Metrics Clinical Quality Measures During this hospital stay, did patient experience: None Coding Level of Care Code Acute Alterations Manager for g Fwd Diagnoses Acute kidney injury N17.9 Dehydration E86.0 Diarrhea R19.7 UTI (urinary tract infection) N39.0
[2020-05-09 11:24] VITALS: BP 126/72; PULSE 50; RESP 18; TEMP 36.6; O2SAT 96
[2020-05-09 11:46] VITALS: PULSE 61; O2SAT 97
--- NOTE | 2020-05-09 13:32 | PC.NURSE ---
pt iv taken out and intact. pt discharge instructions explained and all questions answered. pt taken to entrance via wheelchair
[2020-05-09 13:34] VITALS: BP 126/72; PULSE 61; RESP 18; TEMP 36.6; O2SAT 97
== END 2020-05-09 13:35 | disposition home or self-care (01) | DRG 683 ==
LOC: ER 11:49 → MEDSURG 12:01
PROVIDERS: Admitting Provider Internal Medicine; Emergency Provider Emergency Medicine; PCP Family Medicine; Visit Provider Internal Medicine
DX: N17.9 Acute kidney failure, unspecified (principal); N39.0 Urinary tract infection, site not specified; I48.0 Paroxysmal atrial fibrillation; G89.29 Other chronic pain; M54.9 Dorsalgia, unspecified; E11.9 Type 2 diabetes mellitus without complications; E78.5 Hyperlipidemia, unspecified; I11.0 Hypertensive heart disease with heart failure; I50.9 Heart failure, unspecified; E86.0 Dehydration; R19.7 Diarrhea, unspecified; Z79.84 Long term (current) use of oral hypoglycemic drugs; Z79.01 Long term (current) use of anticoagulants
CPT/HCPCS: 12345; 36415; 36416; 76770; 76857; 80053; 81001; 82436; 82550; 82570; 82962; 83735; 84133; 84156; 84300; 85025; 85610; 85999; 87077; 87086; 87186; 96372; 99282; G0378; J0696; J1815; J3475; J7030

== ENCOUNTER 2022-08-15 14:33 | Outpatient (CLI) | payer MEDICARE, SELFPAY ==
--- NOTE | 2022-08-15 14:40 | XR_ITS ---
WS: [id number] DEXA (DUAL ENERGY X-RAY ABSORPTIOMETRY) Bone mineral density was performed using a Perk machine. HISTORY: ASYMPTOMATIC MENOPAUSAL STATE COMPARISON: None available. Lumbar spine BMD (L1-L4): 1.225 g/cm2 T score: 0.4 Z score: 2.2 Total hip BMD: Left: 0.818 g/cm2. T score: -1.5 Z score: 0.5 Right: 0.808 g/cm2. T score: -1.6 Z score: 0.5 RIGHT curvature lumbar spine. XR/XR DEXA axial skeleton* [id number] IMPRESSION: OSTEOPENIA based upon the WHO classification for females.
== END 2022-08-15 14:34 | disposition home or self-care (01) ==
LOC: RAD 14:37
PROVIDERS: PCP Family Medicine; Visit Provider Nurse Practitioner Family
DX: Z78.0 Asymptomatic menopausal state (principal); M85.80 Other specified disorders of bone density and structure, unspecified site
CPT/HCPCS: 77080

== ENCOUNTER → 2024-06-25 14:10 | Outpatient (BNVA) | payer MEDICARE, SELFPAY | PROVIDERS: PCP Family Medicine; Visit Provider Nurse Practitioner Family | DX: L72.11 Pilar cyst (principal); L57.8 Other skin changes due to chronic exposure to nonionizing radiation; L81.4 Other melanin hyperpigmentation; D48.5 Neoplasm of uncertain behavior of skin | CPT/HCPCS: 11102; 99203 ==

== ENCOUNTER 2025-01-31 12:51 | Outpatient (CLI) | payer MEDICARE, SELFPAY ==
--- NOTE | 2025-01-31 13:08 | XR_ITS ---
WS: [id number] Exam: XR lumbar spine 2-3V* [id number] Date/Time of Exam: 01/31/2025 1:09 PM Reason For Exam: LOW BACK PAIN DLP: No acute fracture. Degenerative disc changes from L3-S1. Mild spondylosis. Facet arthropathy at all levels. Moderate dextroscoliosis. Constipation. XR/XR lumbar spine 2-3V* [id number] IMPRESSION: 1. No fracture or malalignment. 2. Moderately advanced degenerative changes from L3-S1. Dextroscoliosis.
== END 2025-01-31 12:52 | disposition home or self-care (01) ==
PROVIDERS: PCP Family Medicine; Visit Provider Nurse Practitioner Family
DX: M47.896 Other spondylosis, lumbar region (principal); M47.897 Other spondylosis, lumbosacral region; M41.86 Other forms of scoliosis, lumbar region; K59.00 Constipation, unspecified
CPT/HCPCS: 72100